=== PATIENT | female | born 2000 | race Two or more races ===

== ENCOUNTER 2018-03-29 23:30 | Outpatient (CLI) | payer OTHER ==
[2018-03-30 00:30] VITALS: BP 136/68; PULSE 96; RESP 18; TEMP 97.9
--- NOTE | 2018-04-13 08:37 | P.MSEPDOC ---
Presenting Problems - Arrival Data Date of Arrival on Unit: 03/29/18 Time of Arrival on Unit: 23:30 Mode of Transport: Wheelchair - Complaint OB-Reason for Admission/Chief Complaint: Pain Comment: cramping Medical History - Information : 1 Para: 0 Term: 0 : 0 Abortions: Spontaneous or Elective: 0 Number of Living Children: 0 - Gestational Age Gestational Age by JUAN ANTONIO (wks/days): 35 Weeks and 6 Days Review of Systems - Review of Systems Constitutional: No problems Breast: No problems ENT: No problems Cardiovascular: No problems Respiratory: No problems Gastrointestinal: No problems Genitourinary: No problems Musculoskeletal: No problems Neurological: No problems Skin: No problems Vital Signs - Temperature Temperature: 97.9 F Temperature Source: Oral - Pulse Right Brachial Pulse Rate: 96 Pulse Assessment Method: Automatic Cuff - Respirations Respiratory Rate: 18 Oxygen Delivery Method: Room Air O2 Sat by Pulse Oximetry: 100 - Blood Pressure Right Arm Blood Pressure: 136/68 Blood Pressure Mean: 90 Blood Pressure Source: Automatic Cuff Medical Screen Scoring (Pre) - Cervical Exam Dilation: 0 cm = 0 Membranes: Intact - Uterine Contractions Frequency: > 5 minutes apart = 1 Duration: N/A Intensity: N/A - Maternal Vital Signs Maternal Temperature: N/A Maternal Blood Pressure: N/A Signs of Preeclampsia: N/A - Pain Assessment Pain Location and Character: Back, Abdomen Pain Scale Used: Numeric (1 - 10) Pain Intensity: 9 Pain Description: *Acute Pain Frequency: Intermittent Pain Duration: 60 Pain Duration Units: Minutes Pain Behavior: Vocalization Pain Aggravating Factors: Activity - Maternal Trauma Maternal Trauma: N/A - Assessment Baseline FHR: 130 Heart Rate - NICHD Category: Category I (Normal) = 0 NST: Reactive Position: N/A Station: N/A - Total Score Total Score (Pre): 1 - Level of Risk Level of Risk: Low (0-5) Physician Notification (Pre) - Physician Notified Physician Notified Date: 03/30/18 Physician Notified Time: 00:02 Physician/Practitioner Notifed:: Dr. Alexander Spoke With: Dr. Alexander New Order Received: Yes - Notification Comment Comment: discharge pt home, she is to call the office in the morning to update on how she is doing Disposition - Disposition OB Disposition: Discharge to home, Written follow up instructions reviewed Discharge Date: 03/30/18 Discharge Time: 00:16 I agree with the RN Medical Screening Exam: Yes Risk & Benefit of care provided described in d/c instruction: Yes Diagnosis: 35 WEEKS GESTATION OF
== END 2018-03-30 00:16 | disposition home or self-care (01) ==
LOC: FBPOP 23:30
PROVIDERS: ATTEND Obstetrics & Gynecology
DX: O26.893 Other specified pregnancy related conditions, third trimester (principal); R10.9 Unspecified abdominal pain
CPT/HCPCS: 59025; 99213

== ENCOUNTER 2018-04-18 13:28 | Inpatient (IN) | payer BC ==
[2018-04-18] MEDS: LACTATED RINGERS 1,000 ML IV ONE (14:08)
--- NOTE | 2018-04-18 14:58 | US ---
EXAMINATION TYPE: US OB BPP wo non-stress DATE OF EXAM: 04/18/2018 COMPARISON: NONE CLINICAL HISTORY: decreased movement . Decreased movement EXAM PERFORMED: Transabdominal (TA) BPP PARAMETERS: PRESENTATION: Vertex LIE: Longitudinal?? HEART RATE: 137 bpm RHYTHM: Normal DEA: 12.0 DIAPHRAGM IMAGED: yes BPP SCORIN. Breathin (1 episode of breathing of 30 second duration in 30 minutes of scanning time) 2. Movement: 2 (at least 3 discrete body movements in 30 minutes) 3. Tone: 0 (1 episode of active flexion/extension of limb) 4. DEA: 2 (DEA index > 5cm) TOTAL SCORE: 4 / 8 Limited exam, biophysical profile performed.
[2018-04-18 15:25] VITALS: RESP 16
[2018-04-18 15:27] VITALS: BMI 30.5
[2018-04-18 15:34] LABS: Basophils % (A) 0 %; Eosinophils % (A) 0 %; HCT 37.5 % (34.0-46.0); HGB 12.9 gm/dL (11.4-16.0); Lymphocytes # (A) 1.8 k/uL (1.0-4.8); Lymphocytes % (A) 15 %; MCH 31.3 pg (25.0-35.0); MCHC 34.3 g/dL (31.0-37.0); MCV 91.4 fL (80.0-100.0); Mean Platelet Volume 8.1; Monocytes # (A) 0.5 k/uL (0-1.0); Monocytes % (A) 4 %; Neutrophils # (A) 9.6 k/uL (1.3-7.7); Neutrophils % (A) 79 %; Platelet Count 189 k/uL (150-450); RDW 14.4 % (11.5-15.5); WBC 12.1 k/uL (4.0-11.0)
[2018-04-19] MEDS: LACTATED RINGERS 1,000 ML IV ONE (02:03)
--- NOTE | 2018-04-19 08:18 | US ---
EXAMINATION TYPE: US OB BPP wo non-stress DATE OF EXAM: 04/19/2018 COMPARISON: 04/18/2018 CLINICAL HISTORY: repeat . EXAM PERFORMED: Transabdominal (TA) BPP PARAMETERS: PRESENTATION: Vertex LIE: Oblique?? HEART RATE: 131 bpm RHYTHM: Normal DEA: 11.5 DIAPHRAGM IMAGED: yes BPP SCORIN. Breathing: no breathing after 30 minutes (1 episode of breathing of 30 second duration in 30 minutes of scanning time) 2. Movement: 2 (at least 3 discrete body movements in 30 minutes) 3. Tone: 2 (1 episode of active flexion/extension of limb) 4. DEA: 2 (DEA index > 5cm) TOTAL SCORE: 6 / 8 IMPRESSION: Biophysical profile score of 6/8.
[2018-04-19] MEDS ORDERED: CARBOPROST TROMETHAMINE 250 MCG/ML 1 ML AMP IM PRN (08:40)
[2018-04-19] MEDS ORDERED: LIDOCAINE 1% (PF) 10 MG/ML (30 ML SDV) SQ PRN (08:40)
[2018-04-19] MEDS ORDERED: TERBUTALINE 1 MG/ML VIAL SQ PRN (08:40)
[2018-04-19] MEDS ORDERED: METHYLERGONOVINE 0.2 MG/ML 1 ML AMP IM PRN (08:40)
[2018-04-19] MEDS ORDERED: OXYTOCIN 10 UNIT/ML 1 ML VIAL IM PRN (08:40)
[2018-04-19] MEDS ORDERED: OXYTOCIN 20 UNITS/1000 ML NS 1,000 ML IV SCH ×2 (08:45→16:45)
--- NOTE | 2018-04-19 08:46 | P.HPOB ---
History of Present Illness H&P Date: 04/19/18 Chief Complaint: IUP at 38-0/7 weeks, decreased movement, labor This is a 17-year-old 2 para 0010 at 38-0/7 weeks with an estimated due date of . Patient presented yesterday afternoon with complaints of decreased movement initially heart tones were noted to be reactive biophysical profile was was completed and 4 out of 8, patient was admitted for overnight observation. Patient noted contractions overnight BPP was repeated this morning and found to be 6/8 with a reactive NST. Patient is noting movement this morning. On physical exam patient was 1 cm yesterday afternoon it is noted to be 3 cm this morning. Patient noted strong contractions last night. She denies vaginal bleeding loss of fluid, fever, chills, nausea, vomiting. She tolerated a regular diet last night without nausea or vomiting. On blood work showed a blood type of O+, rubella immune, hepatitis B surface antigen negative, RPR nonreactive, GBS negative. Review of Systems Constitutional: Denies chills, Denies fatigue, Denies fever Cardiovascular: Reports edema Respiratory: Denies dyspnea Gastrointestinal: Denies constipation, Denies diarrhea Genitourinary: Reports Past Medical History Past Medical History: Asthma Additional Past Medical History / Comment(s): IBS History of Any Multi-Drug Resistant Organisms: None Reported Past Surgical History: No Surgical Hx Reported Past Psychological History: Anxiety, Depression Smoking Status: Never smoker Past Alcohol Use History: None Reported Past Drug Use History: None Reported - Past Family History Father History Unknown: Yes Family Medical History: Diabetes Mellitus Medications and Allergies Home Medications Medication Instructions Recorded Confirmed Type Pnv No.95/Ferrous Fum/Folic AC 1 each PO DAILY 03/29/18 03/29/18 History [ Multivitamin Tablet] Allergies Allergy/AdvReac Type Severity Reaction Status Date / Time No Known Allergies Allergy Verified 03/29/18 23:44 Exam Osteopathic Statement: *. No significant issues noted on an osteopathic structural exam other than those noted in the History and Physical/Consult. Vital Signs Temp Pulse Resp BP 04/18/18 15:13 98.2 F 102 H 16 132/80 04/18/18 13:51 96.6 F L 134 H 16 119/71 Intake and Output 04/18/18 04/19/18 04/19/18 22:59 06:59 14:59 Other: # Voids 3 Weight 92.533 kg - OBG Physical Exam Abdomen: Gravid and appropriate for gestational age Cervix: 1cm--> 3cm this am Uterus: enlarged Results Result Diagrams: 04/18/18 15:06 Abnormal Lab Results - Last 24 Hours (Table) 04/18/18 Range/Units 15:06 WBC 12.1 H (4.0-11.0) k/uL Neutrophils # 9.6 H (1.3-7.7) k/uL Assessment and Plan (1) Term Current Visit: Yes Status: Acute Code(s): Z34.80 - ENCOUNTER FOR SUPRVSN OF NORMAL , UNSP TRIMESTER SNOMED Code(s): 60256898 (2) Decreased movement Current Visit: Yes Status: Acute Code(s): O36.8190 - DECREASED MOVEMENTS, UNSP TRIMESTER, UNSP SNOMED Code(s): 232135922 (3) Irregular contractions Current Visit: Yes Status: Acute Code(s): O62.2 - OTHER UTERINE INERTIA SNOMED Code(s): 05354896 Plan: We will admit to labor and delivery for labor given cervical change, given patient's heart tones overnight that were reassuring but a biophysical of 6/8 delivery is warranted. Amniotomy performed clear fluid was obtained we'll monitor closely and add Pitocin augmentation of necessary. Patient states understanding of the plan and all questions were answered. Anticipate spontaneous vaginal delivery later this afternoon.
[2018-04-19] MEDS: LACTATED RINGERS 1,000 ML IV SCH ×4 (10:04→21:09)
[2018-04-19] MEDS ORDERED: ROPIVACAINE 100 MG, fentaNYL (PF) 200 MCG in SODIUM CHLORIDE 0.9% 76 ML EPIDURAL ONE (12:34)
[2018-04-19] MEDS ORDERED: LANOLIN CREAM 5 GM TUBE TOPICAL PRN (16:39)
[2018-04-19] MEDS ORDERED: SIMETHICONE 80 MG CHEWABLE PO PRN (16:39)
[2018-04-19] MEDS ORDERED: WITCH HAZEL 1 EACH MED..PAD TOPICAL PRN (16:39)
[2018-04-19] MEDS ORDERED: diphenhydrAMINE 50 MG/ML 1 ML VIAL IVP PRN ×2 (16:39)
[2018-04-19] MEDS ORDERED: diphenhydrAMINE 50 MG CAP PO PRN (16:39)
[2018-04-19] MEDS ORDERED: IBUPROFEN 600 MG TAB PO PRN (16:39)
[2018-04-19] MEDS ORDERED: diphenhydrAMINE 25 MG CAP PO PRN (16:39)
[2018-04-19] MEDS ORDERED: BENZOCAINE/MENTHOL SPRAY 1 GM/SPRAY AEROSOL TOPICAL PRN (16:39)
[2018-04-19] MEDS ORDERED: ACETAMINOPHEN TAB 325 MG TAB PO PRN (16:39)
[2018-04-19] MEDS ORDERED: ZOLPIDEM 5 MG TAB PO PRN (16:39)
[2018-04-19] MEDS ORDERED: HYDROCORTISONE 2.5% RECTAL CREAM 30 GM TUBE RECTAL PRN (16:39)
--- NOTE | 2018-04-19 16:42 | P.PROBDLV ---
Vaginal Delivery Note - . Vaginal Delivery Note: This is a very pleasant 17-year-old 2 para 0010 at 38-0/7 weeks that presented to labor and delivery with decreased movement. Patient was admitted for induction of labor secondary to this and nonreassuring testing. Pitocin induction of labor was begun amniotomy was performed clear fluid was obtained. Patient progressed in labor eventually getting an epidural for analgesia. heart tones were reassuring throughout. Patient progressed to complete and had a normal spontaneous vaginal delivery of a viable female infant at 1626, weight of 6 lbs. 8 oz., Apgars of 9 and 9 at one and 5 minutes respectfully. Infant of note had a loose body cord that was delivered through. On inspection the patient's perineum after delivery no lacerations that required repair were noted. The placenta was delivered spontaneously intact with three-vessel cord, asked me blood loss for this delivery 200 mL. Afterwards the vaginal vault was inspected once again hemostasis was appreciated. Patient and infant tolerated delivery well and are resting comfortably.
[2018-04-19] MEDS: PRENATAL VIT-IRON-FOLIC ACID 1 EACH CAP PO SCH (21:07)
[2018-04-19] MEDS: SENNOSIDES-DOCUSATE SODIUM 1 EACH TAB PO SCH (21:48)
[2018-04-20] MEDS: LACTATED RINGERS 1,000 ML IV SCH ×2 (05:00→05:01)
[2018-04-20] MEDS: PRENATAL VIT-IRON-FOLIC ACID 1 EACH CAP PO SCH (07:43)
[2018-04-20] MEDS: SENNOSIDES-DOCUSATE SODIUM 1 EACH TAB PO SCH (07:43)
--- NOTE | 2018-04-20 08:07 | P.DS ---
Providers Date of admission: 04/19/18 08:40 Expected date of discharge: 04/20/18 Attending physician: Hiwot Chatterjee Primary care physician: Stated None - Discharge Diagnosis(es) (1) Term Current Visit: Yes Status: Acute (2) Decreased movement Current Visit: Yes Status: Acute (3) Irregular contractions Current Visit: Yes Status: Acute (4) Status post normal vaginal delivery Current Visit: Yes Status: Acute Hospital Course: This is a very pleasant 17-year-old 2 para 0010 at 38-0/7 weeks that presented to labor and delivery with complaints of decreased movement. Patient was monitored reassuring testing was noted but BPP was noted to be 4 and only improved to 6. Patient was counseled and desired induction of labor for decreased movement. Patient was started on Pitocin induction of labor amniotomy was performed clear fluid was obtained. Patient progressed through labor eventually getting an epidural, and becoming complete. Patient's red pushing and had a normal spontaneous vaginal delivery of a viable female at 1626, weight of 6 lbs. 8 oz., Apgars of 9 and 9 at one and 5 minutes respectively. Patient has done well . She is ambulating and voiding without difficulty. She is tolerating a regular diet without nausea or vomiting. She is bottle feeding. She denies any concerns this morning and wishes discharge home. Plan - Discharge Summary Discharge Rx Participant: No New Discharge Prescriptions: No Action Pnv No.95/Ferrous Fum/Folic AC [ Multivitamin Tablet] 1 each PO DAILY Discharge Medication List Pnv No.95/Ferrous Fum/Folic AC [ Multivitamin Tablet] 1 each PO DAILY [History] Follow up Appointment(s)/Referral(s): Hiwot Chatterjee DO [Doctor of Osteopathic Medicine] - 1 Week Activity/Diet/Wound Care/Special Instructions: No tub baths or intercourse until 6 weeks Discharge Disposition: HOME SELF-CARE
[2018-04-20 17:33] VITALS: BP 119/84; PULSE 85; TEMP 98.4
== END 2018-04-20 17:17 | disposition home or self-care (01) | DRG 775 ==
LOC: FBPOP 13:28 → 4FBP 14:55 → OBSVTOIN 04-19 08:40
PROVIDERS: ADMIT Obstetrics & Gynecology Obstetrics; ATTEND Obstetrics & Gynecology Obstetrics
PROC: 10907ZC Drainage of Amniotic Fluid, Therapeutic from Products of Conception, Via Natural or Artificial Opening (ICD-10-PCS; principal; 2018-04-19)
PROC: 3E033VJ Introduction of Other Hormone into Peripheral Vein, Percutaneous Approach (ICD-10-PCS; principal; 2018-04-19)
PROC: 00HU33Z Insertion of Infusion Device into Spinal Canal, Percutaneous Approach (ICD-10-PCS; principal; 2018-04-19)
PROC: 10E0XZZ Delivery of Products of Conception, External Approach (ICD-10-PCS; principal; 2018-04-19)
PROC: 3E0R3NZ Introduction of Analgesics, Hypnotics, Sedatives into Spinal Canal, Percutaneous Approach (ICD-10-PCS; principal; 2018-04-19)
DX: O36.8130 Decreased fetal movements, third trimester, not applicable or unspecified (principal); Z37.0 Single live birth; Z3A.38 38 weeks gestation of pregnancy; Z83.3 Family history of diabetes mellitus; O69.89X0 Labor and delivery complicated by other cord complications, not applicable or unspecified
CPT/HCPCS: 59025; 76819; 85025; 88307; 96360; 96367; 99214

== ENCOUNTER 2019-01-26 18:44 | Emergency (ER) | payer BC, OTHER ==
[2019-01-26 19:02] VITALS: TEMP 98.2
[2019-01-26] MEDS ORDERED: MORPHINE SULFATE 4 MG/ML SYRINGE IM STA (19:19)
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
--- NOTE | 2019-01-26 20:00 | XR ---
EXAMINATION TYPE: XR chest 2V DATE OF EXAM: 01/26/2019 COMPARISON: NONE HISTORY: Pain TECHNIQUE: Frontal and lateral views of the chest are obtained. FINDINGS: Heart and mediastinum are normal. Lungs are clear. Diaphragm is normal. Bony thorax appear s normal. IMPRESSION: Normal chest.
--- NOTE | 2019-01-26 20:01 | XR ---
EXAMINATION TYPE: XR elbow complete RT DATE OF EXAM: 01/26/2019 COMPARISON: NONE HISTORY: Pain TECHNIQUE: 3 views FINDINGS: Elbow joint spaces are normal. I see no fracture nor dislocation. There is no sign of elbow joint effusion. IMPRESSION: Negative right elbow exam.
--- NOTE | 2019-01-26 20:01 | XR ---
EXAMINATION TYPE: XR wrist complete RT DATE OF EXAM: 01/26/2019 COMPARISON: NONE HISTORY: Pain TECHNIQUE: 3 views FINDINGS: There is impacted comminuted transverse fracture distal radial metaphysis. There is no disl ocation. There is nondisplaced ulnar styloid process tip fracture. There is no dislocation. IMPRESSION: Fractures of distal radius and ulna. No carpal bone fracture seen.
--- NOTE | 2019-01-26 20:02 | XR ---
EXAMINATION TYPE: XR forearm RT DATE OF EXAM: 01/26/2019 COMPARISON: NONE HISTORY: Pain TECHNIQUE: 2 views FINDINGS: There are fractures of distal radius and ulna described in the wrist x-ray report. Elbow osvaldo int is intact. There is soft tissue swelling around the wrist joint. IMPRESSION: Fractures of distal radius and ulna as above with radius impacted comminuted fracture and nondisplaced ulnar styloid process fracture.
--- NOTE | 2019-01-26 20:03 | XR ---
EXAMINATION TYPE: XR knee complete RT DATE OF EXAM: 01/26/2019 COMPARISON: NONE HISTORY: Pain TECHNIQUE: 3 views FINDINGS: I see no fracture nor dislocation. Joint spaces are normal. There is no sign of knee joint effusion. IMPRESSION: Negative right knee exam.
[2019-01-26] MEDS ORDERED: MORPHINE SULFATE 2 MG/ML SYRINGE IM STA (20:10)
[2019-01-26] MEDS ORDERED: LIDOCAINE 1% INJ 10MG/ML (20 ML MDV) SQ ONE (20:42)
--- NOTE | 2019-01-26 22:23 | XR ---
EXAM: XR Right Forearm, 2 Views CLINICAL HISTORY: ITS.REASON XR Reason: post reduction TECHNIQUE: Frontal and lateral views of the right forearm. COMPARISON: X-ray 01/26/19 IMPRESSION: Improved anatomic alignment. Redemonstration of fractures.
[2019-01-26] MEDS ORDERED: ACET/COD 300 MG/30 MG STARTER PACK 6 TAB BTL PO STA (22:37)
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
[2019-01-26 22:48] VITALS: BP 140/66; PULSE 94; RESP 18
== END 2019-01-26 22:59 | disposition home or self-care (01) ==
LOC: EC 18:44
DX: S52.531A Colles' fracture of right radius, initial encounter for closed fracture (principal); S52.601A Unspecified fracture of lower end of right ulna, initial encounter for closed fracture; S80.211A Abrasion, right knee, initial encounter; V86.56XA Driver of dirt bike or motor/cross bike injured in nontraffic accident, initial encounter; Y93.55 Activity, bike riding; Y92.828 Other wilderness area as the place of occurrence of the external cause
CPT/HCPCS: 73080; 73090; 73110; 73562; 71046; 72125; 70450; 99284; 25605; 96372 ×2; L4350; J2270 ×2

== ENCOUNTER 2019-02-04 13:20 | Day surgery (SDC) | payer BC, OTHER ==
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
[~2019-02-04 13:20] MED LIST: DEXAMETHASONE SOD PHOSPHATE 10 MG/ML 1 ML VIAL IV ONE; HYDROmorphone 0.5 MG/0.5 ML SYRINGE IVP PRN; LIDOCAINE 1% 20 ML VIAL (10MG/ML) FOR IV START INTRADERMA PRN; MIDAZOLAM (PF) 2 MG/2 ML VIAL IV PRN; ONDANSETRON 4 MG/2 ML VIAL IVP ONE; ceFAZolin IN SWFI 2 GM/20 ML SYRINGE IVP ONE; fentaNYL (PF) 50 MCG/ML 2 ML AMP IV PRN
[2019-02-04] MEDS: LACTATED RINGERS 1,000 ML IV SCH ×2 (14:00→18:41)
--- NOTE | 2019-02-04 14:34 | P.ONQ ---
Anesthesiology Proc Note - PNB - Peripheral Nerve Block Performed Right Supraclavicular Procedure Start Time: 14:20 Procedure Stop Time: 14:33 Indication: Acute Post-Operative Pain, Analgesia, Requested by physician Sedation Type: Sedate with meaningful contact maintained Preparation: Sterile Dressing Position: Supine Catheter: None Needle Types: Facet Needle Size: 50mm (2") Needle Gauge: 21 Technique: Ultrasound Injectate: 0.5% Ropivacaine (see comment for volume) (30 ml)
[2019-02-04] MEDS ORDERED: MIDAZOLAM 2 MG/2 ML VIAL ONE (15:54)
[2019-02-04] MEDS ORDERED: SUCCINYLCHOLINE CHLORIDE 100 MG/5 ML SYR IV ONE (15:54)
[2019-02-04] MEDS ORDERED: fentaNYL (PF) 50 MCG/ML 2 ML AMP ONE (15:54)
[2019-02-04] MEDS ORDERED: PROPOFOL 10 MG/ML 20 ML VIAL IV ONE (15:54)
[2019-02-04] MEDS ORDERED: LIDOCAINE 1% INJ 10MG/ML (20 ML MDV) ONE (15:54)
[2019-02-04] MEDS ORDERED: ceFAZolin 1,000 MG in SODIUM CHLORIDE 0.9% 1,000 ML IRRIGATION ONE (16:35)
[2019-02-04] MEDS ORDERED: LACTATED RINGERS 1,000 ML IV ONE (17:05)
[2019-02-04] MEDS ORDERED: HYDROmorphone 0.5 MG/0.5 ML SYRINGE IVP PRN (17:16)
[2019-02-04] MEDS ORDERED: HYDROcodone/APAP 5-325MG 1 EACH TAB PO PRN ×2 (17:16)
[2019-02-04] MEDS ORDERED: ONDANSETRON 4 MG/2 ML VIAL IVP PRN (17:16)
[2019-02-04] MEDS ORDERED: HYDROmorphone 1 MG/ML 1 ML SYRINGE IVP PRN (17:16)
[2019-02-04] MEDS ORDERED: ACETAMINOPHEN TAB 325 MG TAB PO PRN (17:18)
--- NOTE | 2019-02-04 17:20 | P.OP ---
Date of Procedure: 02/04/19 Preoperative Diagnosis: Comminuted displaced intra-articular right distal radius fracture Postoperative Diagnosis: Same Procedure(s) Performed: Open reduction and internal fixation right distal radius fracture Implants: Synthes distal volar wrist plate with appropriate length 2.4 mm and 1.8 mm screws Anesthesia: GETA, regional (Supraclavicular block) Surgeon: Kameron Gardner Maintenance Data Analyst #1: Ambrosio Maher Estimated Blood Loss (ml): 15 Pathology: none sent Condition: stable Disposition: PACU Indications for Procedure: 18-year-old patient seen with a displaced comminuted intra-articular right distal radius fracture. I recommended open reduction internal fixation. Patient was agreeable and consent was obtained. Operative Findings: see description of procedure Description of Procedure: The patient was taken to the operative suite. The patient had undergone a supraclavicular block by the department of anesthesia for postoperative pain management. The patient underwent a general anesthetic by the department of anesthesia. The patient received preoperative IV antibiotics. A tourniquet was placed on the proximal right upper extremity. The right upper extremity was prepped and draped in the normal sterile orthopedic fashion. The extremity was elevated to 300. A standard volar incision was made sharply through the skin along the distal radius. Careful dissection was taken down all the way bluntly to the distal radius. There was a comminuted fracture with obvious intra- articular extension. With the assistance of Awais TURNER the fracture was reduced and an appropriate Synthes distal volar wrist plate was placed in position. Preliminary fixation was achieved in the proximal part of the plate with one 2.4 mm screw. We noted reasonable position of the plate. The fracture was held in a reduced position with the assistance the Awais TURNER while I drilled the distal holes and inserted appropriate length smooth locking pegs. I reviewed the construct under AP and lateral intraoperative imaging. There was reasonable alignment of this comminuted fracture and reasonable placement of the hardware. I placed 1 more locking screw in the proximal plate and again checked the entire construct and again noted adequate alignment. Intraoperative spot films were obtained to document this. Wound was irrigated. The subcu soft tissues were repaired with 2-0 Vicryl. The skin was repaired with 4-0 nylon interrupted sutures. Sterile dressings were applied. The tourniquet was rolled was released with immediate capillary refill noted. The patient was placed into a volar splint. The patient was awakened having entire procedure well. Awais TURNER assisted procedure..
[2019-02-04 18:39] VITALS: BMI 31.9
[2019-02-04 21:31] LABS: Glucose,Whole Blood 184 mg/dL (75-99)
[2019-02-05] MEDS: ceFAZolin IN SWFI 2 GM/20 ML SYRINGE IVP SCH ×2 (00:51→07:47)
[2019-02-05 05:04] VITALS: TEMP 98.2
[2019-02-05] MEDS: LACTATED RINGERS 1,000 ML IV SCH (05:51)
--- NOTE | 2019-02-05 08:41 | FL ---
EXAMINATION TYPE: FL guidance operating room DATE OF EXAM: 02/04/2019 HISTORY: Flouroscopy time 8 seconds of fluoroscopy provided. IMPRESSION: 1. Fluoroscopy time.
[2019-02-05 08:56] VITALS: BP 115/74; PULSE 87; RESP 16
--- NOTE | 2019-02-05 09:20 | XR ---
EXAMINATION TYPE: XR wrist limited RT DATE OF EXAM: 02/04/2019 COMPARISON: 01/26/2019 HISTORY: ORIF TECHNIQUE: 2 intraoperative views are submitted FINDINGS: Postsurgical change appears in near-anatomic alignment. Displaced ulnar styloid fracture no bar and is similar to the prior exam. IMPRESSION: Postsurgical changes.
--- NOTE | 2019-02-05 10:09 | P.PN ---
Subjective Progress Note Date: 02/05/19 Principal diagnosis: Status post ORIF right distal radius fracture Patient evaluated at bedside today, she is resting comfortably. She notes most the sensation is returning to the arm, she still has some tingling in the fingers. She is able to wiggle the fingers. She denies any chest pain or shortness of breath. Objective - Vital Signs Vital signs: Vital Signs Temp 98.2 F 02/05/19 07:52 Pulse 87 02/05/19 07:52 Resp 16 02/05/19 07:52 BP 115/74 02/05/19 07:52 Pulse Ox 95 02/05/19 07:52 Intake & Output 02/04/19 02/05/19 02/05/19 18:59 06:59 18:59 Intake Total 1251 Output Total 15 Balance 1236 Intake: IV 1251 Output: Estimated Blood Loss 15 Other: Voiding Method Toilet # Voids 1 - Exam Right upper extremity: Postop splint is in good position and condition. Skin is warm to touch. Sensation to light touch proximal distal to the cement are intact. Cap refill is less than 2 seconds. - Labs Labs: Abnormal Lab Results - Last 24 Hours (Table) 02/04/19 Range/Units 21:20 POC Glucose (mg/dL) 184 H (75-99) mg/dL Assessment and Plan Plan: Assessment: Postoperative day #1 status post ORIF right distal radius fracture Plan: Pain control, patient stated she did have some nausea from the [place] is prescribed at home. We'll prescribe tramadol and Motrin at discharge Cast instructions were discussed with the patient Activity restrictions discussed [facility]up [facility] 2 weeks Time with Patient: Less than 30
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
== END 2019-02-05 11:33 | disposition home or self-care (01) ==
LOC: OR 13:20 → 4SSUR 17:21 → OR 02-05 11:33
PROVIDERS: ATTEND Orthopaedic Surgery
DX: S52.571A Other intraarticular fracture of lower end of right radius, initial encounter for closed fracture (principal); X58.XXXA Exposure to other specified factors, initial encounter; J45.909 Unspecified asthma, uncomplicated; Z79.3 Long term (current) use of hormonal contraceptives; Z79.891 Long term (current) use of opiate analgesic
CPT/HCPCS: 73100; 25608; J1100; J2405; J0690 ×3; J2250; 64413; 81025

== ENCOUNTER → 2019-02-04 | Outpatient (CLI) | payer BC, OTHER ==
[2019-02-04 14:06] LABS: Basophils % (A) 0 %; Eosinophils # (A) 0.1 k/uL (0-0.7); Eosinophils % (A) 1 %; HCT 38.2 % (34.0-46.0); HGB 12.8 gm/dL (11.4-16.0); Lymphocytes # (A) 1.4 k/uL (1.0-4.8); Lymphocytes % (A) 21 %; MCH 28.9 pg (25.0-35.0); MCHC 33.6 g/dL (31.0-37.0); MCV 86.1 fL (80.0-100.0); Mean Platelet Volume 7.6; Monocytes # (A) 0.2 k/uL (0-1.0); Monocytes % (A) 3 %; Neutrophils # (A) 4.7 k/uL (1.3-7.7); Neutrophils % (A) 73 %; Platelet Count 210 k/uL (150-450); RBC 4.44 m/uL (3.80-5.40); RDW 13.4 % (11.5-15.5); WBC 6.5 k/uL (4.0-11.0)
== END | disposition home or self-care (01) ==
LOC: LABPAT 13:10
PROVIDERS: ATTEND Orthopaedic Surgery
DX: Z01.812 Encounter for preprocedural laboratory examination (principal); S52.501D Unspecified fracture of the lower end of right radius, subsequent encounter for closed fracture with routine healing
CPT/HCPCS: 85025

== ENCOUNTER 2019-08-12 09:33 | Emergency (ER) | payer BC, OTHER ==
[2019-08-12 09:37] VITALS: BP 122/57; PULSE 104; RESP 18; TEMP 98.1
[2019-08-12 10:12] LABS: Appearance,Urine Clear (Clear); Bilirubin,Urine Negative (Negative); Blood,Urine Negative (Negative); Color,Urine Yellow; Glucose,Urine (UA) Negative (Negative); Ketones,Urine Negative (Negative); Leukocyte Esterase,Urine Negative (Negative); Nitrite,Urine Negative (Negative); PH, Urine 7.5 (5.0-8.0); Protein,Urine Negative (Negative); Specific Gravity,Urine 1.022 (1.001-1.035); Urobilinogen,Urine <2.0 mg/dL (<2.0)
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
== END 2019-08-12 10:28 | disposition home or self-care (01) ==
LOC: EC 09:33
DX: O99.89 Other specified diseases and conditions complicating pregnancy, childbirth and the puerperium (principal); M54.5 Low back pain; M79.604 Pain in right leg; R20.0 Anesthesia of skin; Z79.3 Long term (current) use of hormonal contraceptives; Z3A.00 Weeks of gestation of pregnancy not specified
CPT/HCPCS: 81003; 81025; 99283

== ENCOUNTER → 2020-05-07 | Outpatient (CLI) | payer OTHER ==
--- NOTE | 2020-05-07 15:52 | XR ---
EXAM TYPE: LUMBAR SPINE X RAY SERIES COMPARISON: NONE HISTORY: Low back pain TECHNIQUE: 4 views are submitted. FINDINGS: Alignment is anatomic. The pedicles are intact. The transverse processes are intact. There is no s pondylolysis or spondylolisthesis. IMPRESSION: 1. No acute process. If there is concern for disc herniation correlate with MRI.
== END | disposition home or self-care (01) ==
LOC: RADXRMAIN 15:00
PROVIDERS: ATTEND Family Medicine
DX: M54.5 Low back pain (principal)
CPT/HCPCS: 72110

== ENCOUNTER → 2020-06-11 | Outpatient (CLI) | payer OTHER ==
--- NOTE | 2020-06-11 15:30 | MR ---
EXAMINATION TYPE: MR lumbar spine wo con DATE OF EXAM: 06/11/2020 COMPARISON: Lumbar spine x-ray May 07, 2020 HISTORY: Radiculopathy, low back pain and low back pain per order. Pressure and pain low back causing numbness into both legs for 2 years per patient. TECHNIQUE: Multiplanar, multisequence imaging of the lumbar spine is performed without IV contrast. FINDINGS: Sagittal images of the lumbar spine show vertebral body heights and alignment to appear sat isfactory. Disc desiccation L5-S1 level. Disc space heights are maintained. The conus medullaris is s omewhat low in position extending mid L2 level without suspicious signal or cortical thinning of lumb osacral nerve roots. The bone marrow signal intensity is within normal limits. Axial images show the T12-L1, L1-L2, L2-L3, and L3-L4 levels all to appear within normal limits. Axial images at the L4-L5 level show focal central disc protrusion minimally effacing the anterior th ecal sac, bilateral neural foramina are patent. Axial images at the L5-S1 level show focal central disc protrusion with spinal canal is preserved as is increased epidural fat at this level. Bilateral neural foramina remain patent. Paraspinal muscle bulk is maintained. IMPRESSION: Mild degenerative changes in the lower lumbar spine as detailed above. Large herniation t o account for patient's radiculopathy type symptoms is not identified.
== END | disposition home or self-care (01) ==
LOC: RADMRIMAIN 14:08
PROVIDERS: ATTEND Family Medicine
DX: M51.26 Other intervertebral disc displacement, lumbar region (principal); M47.26 Other spondylosis with radiculopathy, lumbar region
CPT/HCPCS: 72148

== ENCOUNTER → 2021-03-15 | Outpatient (CLI) | payer OTHER ==
--- NOTE | 2021-03-15 21:31 | MR ---
EXAMINATION TYPE: MR lumbar spine wo con DATE OF EXAM: 03/15/2021 COMPARISON: 06/11/2020 HISTORY: Low back pain that goes down right leg and causes numbness, 3 years. CONTRAST: 0 mL intravenous Gadavist. TECHNIQUE: Multiplanar, multisequence images of the lumbar spine were acquired. FINDINGS: L5-S1: Disc desiccation is present broad-based disc bulge is present. Some increased signal is presen t posteriorly compatible with an annular tear. No significant thecal sac or epidural space impingemen t is evident. Neural foramen are patent. Disc bulge is diminished over the interval. L4-L5: Disc desiccation is present. A right paracentral large disc herniation is present. This appear s to have impingement of the exiting nerve root. Correlate with the radicular symptoms. This is a new finding from comparison. L3-L4: No significant disc bulge or disc herniation. No spinal canal stenosis. No foraminal stenosi s. L2-L3: No significant disc bulge or disc herniation. No spinal canal stenosis. No foraminal stenosi s. L1-L2: No significant disc bulge or disc herniation. No spinal canal stenosis. No foraminal stenosi s. T12-L1: No significant disc bulge or disc herniation. No spinal canal stenosis. No foraminal stenos is. Cord terminates at the L1-2 level IMPRESSION: 1. New large right paracentral disc herniation impinging the exiting right L5 nerve root. Correlate w ith radicular symptoms. 2. Diminished disc bulging L5-S1. Annular tear remains present.
== END | disposition home or self-care (01) ==
LOC: RADMRIMAIN 20:04
PROVIDERS: ATTEND Orthopaedic Surgery
DX: M51.27 Other intervertebral disc displacement, lumbosacral region (principal)
CPT/HCPCS: 72148

== ENCOUNTER 2021-04-27 06:24 | Day surgery (SDC) | payer OTHER ==
[2021-04-23 14:26] VITALS: BMI 32.5
[~2021-04-27 06:24] MED LIST changes: -DEXAMETHASONE SOD PHOSPHATE 10 MG/ML 1 ML VIAL IV ONE; -HYDROmorphone 0.5 MG/0.5 ML SYRINGE IVP PRN; +LACTATED RINGERS 1,000 ML IV SCH; -LIDOCAINE 1% 20 ML VIAL (10MG/ML) FOR IV START INTRADERMA PRN; -MIDAZOLAM (PF) 2 MG/2 ML VIAL IV PRN; -ONDANSETRON 4 MG/2 ML VIAL IVP ONE; -ceFAZolin IN SWFI 2 GM/20 ML SYRINGE IVP ONE; -fentaNYL (PF) 50 MCG/ML 2 ML AMP IV PRN
[2021-04-27 06:48] VITALS: TEMP 97.3
[2021-04-27] MEDS ORDERED: MIDAZOLAM 2 MG/2 ML VIAL ONE (07:24)
[2021-04-27] MEDS ORDERED: TRIAMCINOLONE ACETONIDE 40 MG/ML 1 ML VIAL ONE (07:24)
[2021-04-27] MEDS ORDERED: ROPIVACAINE 5MG/ML 20ML VIAL ONE (07:24)
[2021-04-27] MEDS ORDERED: IOPAMIDOL M200 10 ML VIAL ONE (07:24)
[2021-04-27] MEDS ORDERED: fentaNYL (PF) 50 MCG/ML 2 ML AMP ONE (07:24)
--- NOTE | 2021-04-27 07:39 | P.PCN ---
Date of Procedure: 04/27/21 Surgeon: David Aguilar Pathology: none sent Condition: stable Disposition: PACU Description of Procedure: PREOPERATIVE DIAGNOSIS: 1-Lumbar radiculopathy 2- Lumber Degenerative Disc Diseases. POSTOPERATIVE DIAGNOSIS: 1-Lumbar radiculopathy. 2-Lumbar Degenerative Disc Diseases PROCEDURE 1. Lumbar epidural steroid injection under fluoroscopic guidance at the L4-5 level in the right paramedian approach. 2. Lumbar epidurogram. ANESTHESIA: Local with 1% lidocaine; and IV moderate conscious sedation with Versed and fentanyl EBL: Minimal PROCEDURE INDICATION: The patient with low back pain and radiculitis symptoms unresponsive to conservative treatment. Fluoroscopy was used to optimize visualization of the needle placement and to maximize safety. PROCEDURE DESCRIPTION / TECHNIQUE: The patient was seen and identified in the preoperative area. Risks, benefits, complications including but not limited to infections ,bleeding ,allergic reaction to the medications ,nerve damage and not complete pain relief , and alternatives were discussed with the patient. The patient agreed to proceed with the procedure and signed the consent. IV was started, and vital signs were stable. Patient was taken to the OR and time out was completed. The patient was placed in the prone position on procedure table and a pillow was placed under the abdomen to reduce lumbar lordosis. The lumbosacral area was prepped and draped in the usual sterile fashion with ChloraPrep.Patient was closely monitored during the procedure. Conscious sedation was used during the procedure to decrease patients anxiety. Vital signs were monitered during the entire procedure. Using anterior-posterior fluoroscopy, the L4-5 interlaminar space was identified and the skin over this site was marked and then infiltrated with 1% lidocaine subcutaneously. Subsequently, a 20-gauge Tuohy epidural needle was inserted and advanced toward the epidural space using the Loss of resistance to air technique and guided by AP and lateral fluoroscopy. The epidural space was found at about 9 cm from skin. The correct needle position in the epidural space was verified with the injection of 1 mL of the water soluble contrast dye Omnipaque 180 contrast and observing an excellent epidurogram with the epidural spread of the dye, after negative aspiration for blood and CSF and in the absence of paresthesias. Again after negative aspiration, a 8 ml mixture containing 80 mg of Kenalog and 5 ml of preservative free Normal Saline, and 2 ml of preservative free ropivacaine 0.5% solution was injected and a washout of epidurogram was seen. Needle was withdrawn intact, skin was cleansed, and bandages were applied. patient tolerated procedure well and was transferred to PACU in stable condition.A copy of the needle placement picture was saved to the fluoroscopy machine. COMPLICATIONS: None DISPOSITION / PLANS: The patient was placed in a supine position and transferred to the recovery area in a stable condition for observation. There was no evidence of lower extremity motor or sensory deficit after the procedure. Patient was discharged from the recovery room after meeting discharge criteria. Home discharge instructions were given to the patient by the staff. The patient was reexamined prior to discharge. The patient will schedule a follow up in the clinic in 2-4 weeks.
[2021-04-27] MEDS ORDERED: IV FLUID CONTINUATION 1,000 ML IV ONE (07:41)
[2021-04-27 07:44] VITALS: PULSE 91; RESP 16
[2021-04-27 07:57] VITALS: BP 101/77
--- NOTE | 2021-04-27 09:45 | FL ---
EXAMINATION TYPE: FL guided pain mgmt statistic DATE OF EXAM: 04/27/2021 HISTORY: Fluoroscopy time 7 seconds of fluoroscopy provided. IMPRESSION: 1. Fluoroscopy time.
== END 2021-04-27 08:11 | disposition home or self-care (01) ==
LOC: ORPAIN 06:24
PROVIDERS: ATTEND Anesthesiology
DX: M51.16 Intervertebral disc disorders with radiculopathy, lumbar region (principal); E66.9 Obesity, unspecified; Z68.34 Body mass index [BMI] 34.0-34.9, adult
CPT/HCPCS: 81025; 62323; J2250; J3301; J3010; Q9966; J2795

== ENCOUNTER 2021-05-25 13:20 | Day surgery (SDC) | payer OTHER ==
[2021-05-24 09:02] VITALS: BMI 33.2
[2021-05-25 13:29] VITALS: TEMP 97.8
[2021-05-25] MEDS ORDERED: LACTATED RINGERS 1,000 ML IV ONE (13:32)
[2021-05-25] MEDS ORDERED: IOPAMIDOL M200 10 ML VIAL ONE (13:41)
[2021-05-25] MEDS ORDERED: ROPIVACAINE 5MG/ML 20ML VIAL ONE (13:41)
[2021-05-25] MEDS ORDERED: MIDAZOLAM 2 MG/2 ML VIAL ONE (13:41)
[2021-05-25] MEDS ORDERED: fentaNYL (PF) 50 MCG/ML 2 ML AMP ONE (13:41)
[2021-05-25] MEDS ORDERED: TRIAMCINOLONE ACETONIDE 40 MG/ML 1 ML VIAL ONE (13:41)
--- NOTE | 2021-05-25 13:56 | P.PCN ---
Date of Procedure: 05/25/21 Surgeon: David Aguilar Pathology: none sent Condition: stable Disposition: PACU Description of Procedure: PREOPERATIVE DIAGNOSIS: 1-Lumbar radiculopathy 2- Lumber Degenerative Disc Diseases. POSTOPERATIVE DIAGNOSIS: 1-Lumbar radiculopathy. 2-Lumbar Degenerative Disc Diseases PROCEDURE 1. Lumbar epidural steroid injection under fluoroscopic guidance at the L4-5 level in the right paramedian approach. 2. Lumbar epidurogram. ANESTHESIA: Local with 1% lidocaine; and IV moderate conscious sedation with Versed and fentanyl EBL: Minimal PROCEDURE INDICATION: The patient with low back pain and radiculitis symptoms unresponsive to conservative treatment. Fluoroscopy was used to optimize visualization of the needle placement and to maximize safety. PROCEDURE DESCRIPTION / TECHNIQUE: The patient was seen and identified in the preoperative area. Risks, benefits, complications including but not limited to infections ,bleeding ,allergic reaction to the medications ,nerve damage and not complete pain relief , and alternatives were discussed with the patient. The patient agreed to proceed with the procedure and signed the consent. IV was started, and vital signs were stable. Patient was taken to the OR and time out was completed. The patient was placed in the prone position on procedure table and a pillow was placed under the abdomen to reduce lumbar lordosis. The lumbosacral area was prepped and draped in the usual sterile fashion with ChloraPrep.Patient was closely monitored during the procedure. Conscious sedation was used during the procedure to decrease patients anxiety. Vital signs were monitered during the entire procedure. Using anterior-posterior fluoroscopy, the L4-5 interlaminar space was identified and the skin over this site was marked and then infiltrated with 1% lidocaine subcutaneously. Subsequently, a 20-gauge Tuohy epidural needle was inserted and advanced toward the epidural space using the Loss of resistance to air technique and guided by AP and lateral fluoroscopy. The correct needle position in the epidural space was verified with the injection of 1 mL of the water soluble contrast dye Omnipaque 180 contrast and observing an excellent epidurogram with the epidural spread of the dye, after negative aspiration for blood and CSF and in the absence of paresthesias. Again after negative aspiration, a 8 ml mixture containing 40 mg of Kenalog and 5 ml of preservative free Normal Saline, and 2 ml of preservative free ropivacaine 0.5% solution was injected and a washout of epidurogram was seen. Needle was withdrawn intact, skin was cleansed, and bandages were applied. patient tolerated procedure well and was transferred to PACU in stable condition.A copy of the needle placement picture was saved to the fluoroscopy machine. COMPLICATIONS: None DISPOSITION / PLANS: The patient was placed in a supine position and transferred to the recovery area in a stable condition for observation. There was no evidence of lower extremity motor or sensory deficit after the procedure. Patient was discharged from the recovery room after meeting discharge criteria. Home discharge instructions were given to the patient by the staff. The patient was reexamined prior to discharge. The patient will schedule a follow up in the clinic in 2-4 weeks.
[2021-05-25] MEDS ORDERED: IV FLUID CONTINUATION 1,000 ML IV ONE ×2 (13:59)
[2021-05-25 14:05] VITALS: RESP 16
[2021-05-25 14:18] VITALS: BP 109/70; PULSE 83
--- NOTE | 2021-05-25 14:20 | FL ---
Fluoroscopy HISTORY: Pain 8 seconds fluoroscopy time supplied to the referring clinician. 2 intraoperative C-arm images docume nt the procedure. See dictated report from anesthesia.
== END 2021-05-25 14:30 | disposition home or self-care (01) ==
LOC: ORPAIN 13:20
PROVIDERS: ATTEND Anesthesiology
DX: M51.16 Intervertebral disc disorders with radiculopathy, lumbar region (principal); M51.36 Other intervertebral disc degeneration, lumbar region
CPT/HCPCS: 81025; 62323; J2250; J3301; J3010; Q9966; J2795; 99152

== ENCOUNTER → 2021-07-02 | Outpatient (CLI) | payer OTHER ==
--- NOTE | 2021-07-02 16:48 | ECHOF ---
Referral Reason:R01.1 murmur MEASUREMENTS -------- HEIGHT: 175.3 cm WEIGHT: 104.3 kg BP: RVIDd: 3.3 cm (< 3.3) IVSd: 1.2 cm (0.6 - 1.1) LVIDd: 4.3 cm (3.9 - 5.3) LVPWd: 1.0 cm (0.6 - 1.1) IVSs: 1.4 cm LVIDs: 2.6 cm LVPWs: 1.7 cm LAESV Index (A-L): 20.18 ml/m Ao Diam: 2.4 cm (2.0 - 3.7) AV Cusp: 1.9 cm (1.5 - 2.6) LA Diam: 2.9 cm (2.7 - 3.8) MV EXCURSION: 19.189 mm (> 18.000) MV EF SLOPE: 94 mm/s (70 - 150) EPSS: 0.5 cm MV E Collin: 1.03 m/s MV DecT: 195 ms MV A Collin: 0.63 m/s MV E/A Ratio: 1.63 RAP: 3.00 mmHg RVSP: 22.42 mmHg FINDINGS -------- Sinus rhythm. This was a technically adequate study. The left ventricular size is normal. There is borderline concentric left ventricular hypertrophy. Overall left ventricular systolic function is normal with, an EF between 55 - 60 %. The diastolic filling pattern is normal for the age of the patient 7.17. The right ventricle is mildly enlarged. Normal LA size by volume 22+/-6 ml/m2. The right atrial size is normal. Interatrial and interventricular septum intact. The aortic valve is trileaflet and appears structurally normal. There is no evidence of aortic regu rgitation. There is no evidence of aortic stenosis. There is trace mitral regurgitation. Mild tricuspid regurgitation present. There is no evidence of pulmonary hypertension. The right v entricular systolic pressure, as measured by Doppler, is 22.42mmHg. There is no pulmonic regurgitation present. The aortic root size is normal. IVC Not well visulized. There is no pericardial effusion. CONCLUSIONS -------- 1. The left ventricular size is normal. 2. There is borderline concentric left ventricular hypertrophy. 3. Overall left ventricular systolic function is normal with, an EF between 55 - 60 %. 4. The diastolic filling pattern is normal for the age of the patient 7.17 5. The right ventricle is mildly enlarged. 6. There is trace mitral regurgitation. 7. Mild tricuspid regurgitation present. FITNESS WORKER: Kacy Robles RDCS
== END | disposition home or self-care (01) ==
LOC: RADECHMAIN 11:32
PROVIDERS: ATTEND Family Medicine
DX: I08.1 Rheumatic disorders of both mitral and tricuspid valves (principal)
CPT/HCPCS: 93306

== ENCOUNTER 2021-08-19 06:18 | Day surgery (SDC) | payer OTHER ==
[2021-08-19] MEDS ORDERED: LACTATED RINGERS 1,000 ML IV SCH (06:32)
[2021-08-19 06:39] VITALS: TEMP 97.9
[2021-08-19] MEDS ORDERED: LIDOCAINE 1% (10MG/ML) FOR IV START INTRADERMA ONE (06:45)
[2021-08-19] MEDS ORDERED: MIDAZOLAM 2 MG/2 ML VIAL ONE (07:03)
[2021-08-19] MEDS ORDERED: fentaNYL (PF) 50 MCG/ML 2 ML AMP ONE (07:03)
[2021-08-19] MEDS ORDERED: IOPAMIDOL M200 10 ML VIAL ONE (07:03)
[2021-08-19] MEDS ORDERED: methylPREDNISolone ACETATE 40 MG/ML 1 ML VIAL ONE (07:03)
--- NOTE | 2021-08-19 07:18 | P.PCN ---
Date of Procedure: 08/19/21 Procedure(s) Performed: PREOPERATIVE DIAGNOSIS: 1-Lumbar radiculopathy . -2-Lumber herniated disc disease. 3-lumbar degenerative disc disease. POSTOPERATIVE DIAGNOSIS: Same as preoperative diagnoses. PROCEDURE 1. Transforaminal epidural steroid injection under fluoroscopic guidance at right L4-5 level. (Fluoroscopy images stored on file in the radiology Department ) 2. Lumbar epidurogram . ANESTHESIA: Local with 1% lidocaine 3 ml , moderate sedation with intravenous Versed 2 mg and fentanyle 50 micrograms. EBL: Minimal PROCEDURE INDICATION: The patient with low back pain and radiculopathy symptoms unresponsive to conservative treatment. PROCEDURE DESCRIPTION / TECHNIQUE: The patient was seen and identified in the preoperative area. Risks, benefits, complications, and alternatives were discussed with the patient. The patient ag christos to proceed with the procedure and signed the consent. IV was started, and vital signs were stable. Patient was taken to the OR and time out was completed. The patient was placed in the prone position on procedure table and a pillow was placed under the abdomen to reduce lumbar lordosis. The lumbosacral area was prepped and draped in the usual sterile fashion. Critical pause was taken. Vital signs were closely monitored during the procedure. Conscious sedation was used during the procedure to decrease patient s anxiety. Using oblique fluoroscopy, the chin of the `AnnetteNatan dog at Right L4-5 level was identified, and the skin and deeper tissues just below was localized with 1% lidocaine. Subsequently, a 22-gauge 5-inch spinal needle was advanced under a tunneled view fluoroscopic guidance just underneath the chin of the `[place] dog at the right L4-5 Under lateral fluoroscopy, the needle was then advanced to the posterior border of the interforaminal space. After negative aspiration of CSF and blood and with no paresthesias, 1 mL Isovue 200 contrast dye was injected excellent epidurogram and outlining of the nerve root Subsequently, 3 mL of block solution containing 80 mg Depo-Medrol and 2 mL of 0.9% normal saline PF was injected. Needle was removed . At the end of the procedure, skin was cleansed, and bandages were applied. COMPLICATIONS:none DISPOSITION / PLANS: The patient was placed in a supine position and transferred to the recovery area in a stable condition for observation. There was no evidence of lower extremity motor or sensory deficit after the procedure. Patient was discharged from the recovery room after meeting discharge criteria. Home discharge instructions were given to the patient by the staff. The patient was reexamined prior to discharge.
[2021-08-19] MEDS ORDERED: IV FLUID CONTINUATION 1,000 ML IV ONE (07:21)
[2021-08-19 07:31] VITALS: RESP 14
[2021-08-19 07:38] VITALS: BP 111/74; PULSE 82
--- NOTE | 2021-08-19 09:24 | FL ---
EXAMINATION TYPE: FL guided pain mgmt statistic DATE OF EXAM: 08/19/2021 HISTORY: Fluoroscopy time 4 seconds of fluoroscopy provided. IMPRESSION: 1. Fluoroscopy time.
== END 2021-08-19 07:55 | disposition home or self-care (01) ==
LOC: ORPAIN 06:18
PROVIDERS: ATTEND Specialist
DX: M51.16 Intervertebral disc disorders with radiculopathy, lumbar region (principal)
CPT/HCPCS: 81025; 64483; J2250; J1030; J3010; Q9966; 62323; 99152

== ENCOUNTER 2024-07-04 09:14 | Emergency (ER) | payer OTHER ==
[2024-07-04 09:22] VITALS: RESP 18
--- NOTE | 2024-07-04 10:06 | ED ---
Abdominal Pain HPI - General Chief Complaint: Abdominal Pain Stated Complaint: Abd pain-18 weeks preg Time Seen by Provider: 07/04/24 09:28 Source: patient, RN notes reviewed Mode of arrival: ambulatory Limitations: no limitations - History of Present Illness Initial Comments: 23-year-old female presents emergency department with chief complaint of abdom inal discomfort, . Patient states she is not exactly sure how far along she has she believes she may be 18 to 20 weeks but states that she had a positive test 4 weeks ago but states that she has been having menstrual cycles for several months but not normal menstrual cycles. Patient denies any fevers or chills denies any dysuria no vaginal bleeding or vaginal discharge no change in bowel habits. - Related Data Home Medications Medication Instructions Recorded Confirmed norgestimate-ethinyl estradioL 1 tab PO HS 02/04/19 08/19/21 [Sprintec 28 Day Tablet] Allergies Allergy/AdvReac Type Severity Reaction Status Date / Time No Known Allergies Allergy Verified 07/04/24 09:17 Review of Systems ROS Statement: Those systems with pertinent positive or pertinent negative responses have been documented in the HPI. ROS Other: All systems not noted in ROS Statement are negative. Past Medical History Past Medical History: Asthma Additional Past Medical History / Comment(s): IBS, EXERCISE INDUCED ASTHMA, NO INHALER USE. History of Any Multi-Drug Resistant Organisms: None Reported Past Surgical History: Orthopedic Surgery Additional Past Surgical History / Comment(s): Right wrist surgery. PAIN CLINIC PROCEDURES Past Anesthesia/Blood Transfusion Reactions: No Reported Reaction Additional Past Anesthesia/Blood Transfusion Reaction / Comment(s): HAS NEVER HAD GENERAL ANESTHESIA. Past Psychological History: Anxiety, Depression Smoking Status: Never smoker Past Alcohol Use History: None Reported Past Drug Use History: Marijuana - Past Family History Father History Unknown: Yes Family Medical History: Diabetes Mellitus General Exam Limitations: no limitations General appearance: alert, in no apparent distress Head exam: Present: atraumatic, normocephalic, normal inspection Eye exam: Present: normal appearance, PERRL, EOMI. Absent: scleral icterus, conjunctival injection, periorbital swelling Respiratory exam: Present: normal lung sounds bilaterally. Absent: respiratory distress, wheezes, rales, rhonchi, stridor Cardiovascular Exam: Present: regular rate, normal rhythm, normal heart sounds. Absent: systolic murmur, diastolic murmur, rubs, gallop, clicks GI/Abdominal exam: Present: soft, tenderness, normal bowel sounds. Absent: distended, guarding, rebound, rigid Neurological exam: Present: alert, oriented X3, CN II-XII intact, reflexes normal. Absent: motor sensory deficit Skin exam: Present: warm, dry, intact, normal color. Absent: rash Course Vital Signs 07/04/24 09:17 Temperature 97.9 F Pulse Rate 91 Respiratory 18 Rate Blood Pressure 124/81 O2 Sat by Pulse 100 Oximetry Medical Decision Making - Medical Decision Making Was pt. sent in by a medical professional or institution (, PA, RETAIL SALES ASSOCIATE, urgent care, hospital, or residential...) When possible be specific @ -No Did you speak to anyone other than the patient for history (EMS, parent, family, police, friend...)? What history was obtained from this source @ -No Did you review nursing and triage notes (agree or disagree)? Why? @ -I reviewed and agree with nursing and triage notes Were old charts reviewed (outside hosp., previous admission, EMS record, old EKG, old radiological studies, urgent care reports/EKG's, residential records)? Report findings @ -[Reviewed prior ABO Rh and RIG SITE ENGINEER consultations Differential Diagnosis (chest pain, altered mental status, abdominal pain women, abdominal pain men, vaginal bleeding, weakness, fever, dyspnea, syncope, headache, dizziness, GI bleed, back pain, seizure, CVA, palpatations, mental health, musculoskeletal)? @ -Differential Abdominal Pain Women: Appendicitis, Cholecystitis, diverticulosis, ischemic bowel, pancreatitis, hepatitis, UTI, gastroenteritis, AAA, incarcerated hernia, bowel obstruction, constipation, inflammatory bowel, hepatitis, peptic ulcer disease, splenic infarction, perforated viscus, vulvitis, ovarian torsion, PID, kidney stone, placenta abruption, this is not meant to be an all-inclusive list EKG interpreted by me (3pts min.). @ -None X-rays interpreted by me (1pt min.). @ -None done CT interpreted by me (1pt min.). @ -None done U/S interpreted by me (1pt. min.). @ -Ultra sound OB showing intrauterine heart rate 130 with approximately gestation of 22 weeks and 5 days What testing was considered but not performed or refused? (CT, X-rays, U/S, labs)? Why? @ -None What meds were considered but not given or refused? Why? @ -None Did you discuss the management of the patient with other professionals (professionals i.e. , PA, RETAIL SALES ASSOCIATE, lab, RT, psych nurse, social media sr strategy manager, recreation therapy aides teacher, teacher, real estate loan officer, showcase trimmer)? Give summary @ -No Was smoking cessation discussed for >3mins.? @ -No Was critical care preformed (if so, how long)? @ -No Were there social determinants of health that impacted care today? How? (H omelessness, low income, unemployed, alcoholism, drug addiction, transportation, low edu. Level, literacy, decrease access to med. care, [facility], rehab)? @ -No Was there de-escalation of care discussed even if they declined (Discuss DNR or withdrawal of care, Hospice)? DNR status @ -No What co-morbidities impacted this encounter? (DM, HTN, Smoking, COPD, CAD, Cancer, CVA, ARF, Chemo, Hep., AIDS, mental health diagnosis, sleep apnea, morbid obesity)? @ -None Was patient admitted / discharged? Hospital course, mention meds given and route, prescriptions, significant lab abnormalities, going to OR and other pertinent info. @ -Discharge patient presented for abdominal pain. Patient's ultrasound reveals intrauterine 22 weeks and 5 days laboratory studies urinalysis unremarkable patient advised to go to labor and delivery for further evaluation and follow-up with RIG SITE ENGINEER. Undiagnosed new problem with uncertain prognosis? @ -No Drug Therapy requiring intensive monitoring for toxicity (Heparin, Nitro, Insulin, Cardizem)? @ -No Were any procedures done? @ -No Diagnosis/symptom? @ -Abdominal pain Acute, or Chronic, or Acute on Chronic? @ -Acute Uncomplicated (without systemic symptoms) or Complicated (systemic symptoms)? @ -[Uncomplicated Side effects of treatment? @ -No Exacerbation, Progression, or Severe Exacerbation? @ -No Poses a threat to life or bodily function? How? (Chest pain, USA, DC, pneumonia, PE, COPD, DKA, ARF, appy, cholecystitis, CVA, Diverticulitis, Homicidal, Suicidal, threat to staff... and all critical care pts) @ -No - Lab Data Result diagrams: 07/04/24 10:04 07/04/24 10:04 Lab Results 07/04/24 07/04/24 07/04/24 Range/Units 10:04 10:04 10:04 WBC 6.3 (3.8-10.6) k/uL RBC 3.72 L (3.80-5.40) m/uL Hgb 11.8 (11.4-16.0) gm/dL Hct 35.6 (34.0-46.0) % MCV 95.7 (80.0-100.0) fL MCH 31.8 (25.0-35.0) pg MCHC 33.2 (31.0-37.0) g/dL RDW 14.9 (11.5-15.5) % Plt Count 156 (150-450) k/uL MPV 8.1 Neutrophils % 77 % Lymphocytes % 19 % Monocytes % 2 % Eosinophils % 0 % Basophils % 0 % Neutrophils # 4.9 (1.3-7.7) k/uL Lymphocytes # 1.2 (1.0-4.8) k/uL Monocytes # 0.1 (0-1.0) k/uL Eosinophils # 0.0 (0-0.7) k/uL Basophils # 0.0 (0-0.2) k/uL Sodium 138 (137-145) mmol/L Potassium 3.8 (3.5-5.1) mmol/L Chloride 108 H (98-107) mmol/L Carbon Dioxide 24 (22-30) mmol/L Anion Gap 6 mmol/L BUN 9 (7-17) mg/dL Creatinine 0.44 L (0.52-1.04) mg/dL Est GFR (CKD-EPI)AfAm >90 (>60 ml/min/1.73 sqM) Est GFR (CKD-EPI)NonAf >90 (>60 ml/min/1.73 sqM) Glucose 78 (74-99) mg/dL Calcium 9.0 (8.4-10.2) mg/dL Total Bilirubin 0.6 (0.2-1.3) mg/dL AST 16 (14-36) U/L ALT 8 (4-34) U/L Alkaline Phosphatase 70 (38-126) U/L Total Protein 6.7 (6.3-8.2) g/dL Albumin 3.7 (3.5-5.0) g/dL Lipase 31 (23-300) U/L Urine Color Light Yellow Urine Appearance Cloudy H (Clear) Urine pH 6.5 (5.0-8.0) Ur Specific [place] 1.024 (1.001-1.035) Urine Protein Negative (Negative) Urine Glucose (UA) Negative (Negative) Urine Ketones Negative (Negative) Urine Blood Negative (Negative) Urine Nitrite Negative (Negative) Urine Bilirubin Negative (Negative) Urine Urobilinogen <2.0 (<2.0) mg/dL Ur Leukocyte Esterase Large H (Negative) Urine RBC 1 (0-5) /hpf Urine WBC 3 (0-5) /hpf Ur Squamous Epith Cells 17 H (0-4) /hpf Urine Bacteria Rare H (None) /hpf Urine Mucus Few H (None) /hpf Disposition Clinical Impression: Abdominal pain during Disposition: HOME SELF-CARE Condition: Stable Instructions (If sedation given, give patient instructions): Abdominal Pain in (ED) Additional Instructions: Please return to the Emergency Department if symptoms worsen or any other concerns. Is patient prescribed a controlled substance at d/c from ED?: No Referrals: Bianca Hinojosa MD [Primary Care Provider] - 1-2 days Time of Disposition: 11:53
[2024-07-04 10:15] LABS: Basophils % (A) 0 %; Eosinophils % (A) 0 %; HCT 35.6 % (34.0-46.0); HGB 11.8 gm/dL (11.4-16.0); Lymphocytes # (A) 1.2 k/uL (1.0-4.8); Lymphocytes % (A) 19 %; MCH 31.8 pg (25.0-35.0); MCHC 33.2 g/dL (31.0-37.0); MCV 95.7 fL (80.0-100.0); Mean Platelet Volume 8.1; Monocytes # (A) 0.1 k/uL (0-1.0); Monocytes % (A) 2 %; Neutrophils # (A) 4.9 k/uL (1.3-7.7); Neutrophils % (A) 77 %; Platelet Count 156 k/uL (150-450); RBC 3.72 m/uL (3.80-5.40); RDW 14.9 % (11.5-15.5); WBC 6.3 k/uL (3.8-10.6)
[2024-07-04 10:21] LABS: Appearance,Urine Cloudy (Clear); Bacteria,Urine Rare /hpf; Bilirubin,Urine Negative (Negative); Blood,Urine Negative (Negative); Color,Urine Light Yellow; Glucose,Urine (UA) Negative (Negative); Ketones,Urine Negative (Negative); Leukocyte Esterase,Urine Large (Negative); Mucus,Urine Few /hpf; Nitrite,Urine Negative (Negative); PH, Urine 6.5 (5.0-8.0); Protein,Urine Negative (Negative); RBC,Urine 1 /hpf (0-5); Specific Gravity,Urine 1.024 (1.001-1.035); Squamous Epithelial Cell,Urine 17 /hpf (0-4); Urobilinogen,Urine <2.0 mg/dL (<2.0); WBC,Urine 3 /hpf (0-5)
[2024-07-04 10:29] LABS: ALT 8 U/L (4-34); AST 16 U/L (14-36); African American GFR (CKD) >90 (>60 ml/min/1.73 sqM); Albumin 3.7 g/dL (3.5-5.0); Alkaline Phosphatase 70 U/L (38-126); Anion Gap 6 mmol/L; Blood Urea Nitrogen 9 mg/dL (7-17); Carbon Dioxide 24 mmol/L (22-30); Chloride 108 mmol/L (98-107); Glucose 78 mg/dL (74-99); Lipase 31 U/L (23-300); Non-African American GFR(CKD) >90 (>60 ml/min/1.73 sqM); Potassium 3.8 mmol/L (3.5-5.1); Sodium 138 mmol/L (137-145); Total Bilirubin 0.6 mg/dL (0.2-1.3); Total Protein 6.7 g/dL (6.3-8.2)
[2024-07-04] MEDS: SODIUM CHLORIDE 0.9% 1,000 ML IV STA (10:35)
--- NOTE | 2024-07-04 11:21 | US ---
EXAMINATION TYPE: US OB >= 14 wk fetus DATE OF EXAM: 07/04/2024 COMPARISON: None CLINICAL INDICATION: Female, 23 years old with history of pain; Cramping. No prior ultrasound. No p renatal care. Patient states she has been having her periods still. TECHNIQUE: Transabdominal (TA) GESTATIONAL AGE / DATING Physician Established: Not yet established Dates by LMP: (22 weeks/0 days) EDC: 11/07/24 Dates by First Scan: No previous this is first scan Dates by Current Scan: (22 weeks/5 days) EDC: 11/02/24 Beta HCG (if available): Not available at this time SURVEY IUP: Single PLACENTA: Posterior PREVIA: No Previa DEA: 15.2 cm Normal CERVICAL LENGTH (transabdominal: norm > 3.0cm): 3.4 cm BIOMETRY PRESENTATION: Vertex BPD: 5.4 cm 22 weeks / 3 days HC: 20.1 cm 22 weeks / 2 days AC: 18.4 cm 23 weeks / 2 days FL: 3.9 cm 22 weeks / 5 days ESTIMATED WEIGHT IN GRAMS: 541 grams ESTIMATED WEIGHT IN LBS/OZ: 1 lbs. 3 oz. WEIGHT PERCENTAGE BASED ON ESTABLISHED DATES: 85% HC/AC: 1.1 Normal FL/AC: 21% Normal HEART RATE: 130 bpm RHYTHM: Normal IMPRESSION: Single live intrauterine gestation with ultrasound age 22 weeks 5 days. Additional information as piper cribed above. [facility], , 07/04/2024 11:19 AM
[2024-07-04 12:17] VITALS: BP 128/80; PULSE 81
[2024-07-04 12:33] VITALS: TEMP 97.8
== END 2024-07-04 12:45 | disposition home or self-care (01) ==
LOC: EC 09:14
CPT/HCPCS: 36415; 76805; 80053; 81001; 83690; 85025; 96360; 99284

== ENCOUNTER 2024-07-04 12:48 | Outpatient (CLI) | payer OTHER ==
[2024-07-04 14:04] VITALS: BP 109/61; PULSE 76; RESP 16; TEMP 97.3
--- NOTE | 2024-07-18 09:47 | P.MSEPDOC ---
Presenting Problems - Arrival Data Date of Arrival on Unit: 07/04/24 Time of Arrival on Unit: 12:48 Mode of Transport: Ambulatory - Complaint OB-Reason for Admission/Chief Complaint: Pain Comment: lower right pelvic pain Medical History - Information : 4 Para: 2 Term: 2 : 0 Abortions: Spontaneous or Elective: 1 Number of Living Children: 2 - Gestational Age Gestational Age by JUAN ANTONIO (wks/days): 22 Weeks and 5 Days Review of Systems - Review of Systems Constitutional: No problems Breast: No problems ENT: No problems Cardiovascular: No problems Respiratory: No problems Gastrointestinal: No problems Genitourinary: No problems Musculoskeletal: No problems Neurological: No problems Skin: No problems Vital Signs - Temperature Temperature: 97.3 F Temperature Source: Temporal Artery Scan - Pulse Right Brachial Pulse Rate: 76 Pulse Assessment Method: Automatic Cuff - Respirations Respiratory Rate: 16 Oxygen Delivery Method: Room Air O2 Sat by Pulse Oximetry: 100 - Blood Pressure Right Arm Blood Pressure: 109/61 Blood Pressure Mean: 77 Blood Pressure Source: Automatic Cuff Medical Screen Scoring - Uterine Contractions Frequency From (mins): 0 - Assessment - Baby A Baseline FHR: 130 Heart Rate - NICHD Category: Category I (Normal) Physician Notification - Physician Notified Physician Notified Date: 07/04/24 Physician Notified Time: 13:21 Physician: Hiwot Chatterjee New Order Received: Yes (abx sent, d/c with follow up at [facility] appt 07/18) Maternal Triage Index - Stat/Priority 1 Stat Priority 1: No - Urgent/Priority 2 Urgent Priority 2: Yes Provider Notified: Hiwot Chatterjee Provider Notified Time: 13:21 Criteria Met for Priority 2: 22.5 weeks lower right pelvic pain, no contractions, sent after EC workup Disposition - Disposition OB Disposition: Triage, Discharge to home, Written follow up instructions reviewed Discharge Date: 07/04/24 Discharge Time: 13:25 I agree with the RN Medical Screening Exam: Yes Case reviewed; plan agreed upon as documented in EMR&OBIX.: Yes Diagnosis: RELATED CONDITIONS, UNSPECIFIED, SECOND TRIMESTER
== END 2024-07-04 13:25 | disposition home or self-care (01) ==
LOC: FBPOP 12:48
PROVIDERS: ATTEND Obstetrics & Gynecology Obstetrics
CPT/HCPCS: 99213

== ENCOUNTER 2024-07-30 21:45 | Emergency (ER) | payer OTHER ==
[2024-07-30 21:53] VITALS: TEMP 98.2
[2024-07-30] MEDS: ACETAMINOPHEN TAB 325 MG TAB PO STA (22:25)
[2024-07-30] MEDS: SODIUM CHLORIDE 0.9% 1,000 ML IV STA (22:25)
[2024-07-30 22:30] LABS: Basophils % (A) 0 %; Eosinophils # (A) 0.1 k/uL (0-0.7); Eosinophils % (A) 1 %; HCT 32.5 % (34.0-46.0); HGB 11.1 gm/dL (11.4-16.0); Lymphocytes % (A) 25 %; MCH 31.9 pg (25.0-35.0); MCHC 34.2 g/dL (31.0-37.0); MCV 93.3 fL (80.0-100.0); Mean Platelet Volume 8.5; Monocytes # (A) 0.3 k/uL (0-1.0); Monocytes % (A) 4 %; Neutrophils # (A) 5.5 k/uL (1.3-7.7); Neutrophils % (A) 69 %; Platelet Count 167 k/uL (150-450); RBC 3.48 m/uL (3.80-5.40); RDW 13.8 % (11.5-15.5); WBC 7.9 k/uL (3.8-10.6)
[2024-07-30 22:40] LABS: INR 0.9 (<1.2); Partial Thromboplastin Time 25.5 sec (22.0-30.0); Prothrombin Time 9.7 sec (10.0-12.5)
[2024-07-30 22:42] LABS: ALT 8 U/L (4-34); AST 17 U/L (14-36); African American GFR (CKD) >90 (>60 ml/min/1.73 sqM); Albumin 3.4 g/dL (3.5-5.0); Alkaline Phosphatase 89 U/L (38-126); Anion Gap 7 mmol/L; Blood Urea Nitrogen 11 mg/dL (7-17); Calcium 8.8 mg/dL (8.4-10.2); Carbon Dioxide 18 mmol/L (22-30); Chloride 112 mmol/L (98-107); Glucose 104 mg/dL (74-99); Lipase 35 U/L (23-300); Magnesium 1.7 mg/dL (1.6-2.3); Non-African American GFR(CKD) >90 (>60 ml/min/1.73 sqM); Potassium 3.7 mmol/L (3.5-5.1); Sodium 137 mmol/L (137-145); Total Bilirubin 0.6 mg/dL (0.2-1.3); Total Protein 6.4 g/dL (6.3-8.2)
--- NOTE | 2024-07-30 22:44 | ED ---
Chest Pain HPI - General Chief Complaint: Chest Pain Stated Complaint: Chest pain- 26 wks preg Time Seen by Provider: 07/30/24 22:06 Source: patient, EMS Mode of arrival: EMS Limitations: no limitations - History of Present Illness Initial Comments: 23-year-old female currently 26 weeks presenting with chief complaint of chest pain. G4, Patient was driving earlier this evening when she started experiencing sharp pain across the lower portion of her chest. States that at that time she was also a bit short of breath. She then pulled over and called 911. She admits to nausea, no vomiting. No bleeding. States that she now is having some sporadic abdominal pain as well, nonlocalized. No fevers. She has had a cough. No congestion or sore throat. No dysuria or hematuria. No lower extremity swelling. Follows with [facility] Dr. Chatterjee. - Related Data Previous Rx's Medication Instructions Recorded Cephalexin [Keflex] 500 mg PO Q12HR 7 Days #14 cap 07/31/24 Allergies Allergy/AdvReac Type Severity Reaction Status Date / Time Latex, Natural Rubber AdvReac Itching Verified 07/30/24 21:53 Review of Systems ROS Statement: Those systems with pertinent positive or pertinent negative responses have been documented in the HPI. ROS Other: All systems not noted in ROS Statement are negative. Past Medical History Past Medical History: Asthma Additional Past Medical History / Comment(s): IBS, EXERCISE INDUCED ASTHMA, NO INHALER USE. History of Any Multi-Drug Resistant Organisms: None Reported Past Surgical History: Orthopedic Surgery Additional Past Surgical History / Comment(s): Right wrist surgery. PAIN CLINIC PROCEDURES Past Anesthesia/Blood Transfusion Reactions: No Reported Reaction Additional Past Anesthesia/Blood Transfusion Reaction / Comment(s): HAS NEVER HAD GENERAL ANESTHESIA. Past Psychological History: Anxiety, Depression Smoking Status: Never smoker - Past Family History Father History Unknown: Yes Family Medical History: Diabetes Mellitus General Exam Limitations: no limitations General appearance: alert, in no apparent distress Head exam: Present: atraumatic, normocephalic, normal inspection Eye exam: Present: normal appearance, EOMI Neck exam: Present: normal inspection. Absent: meningismus Respiratory exam: Present: normal lung sounds bilaterally. Absent: respiratory distress, wheezes, rales, rhonchi, stridor Cardiovascular Exam: Present: regular rate, normal rhythm, normal heart sounds. Absent: systolic murmur, diastolic murmur, rubs, gallop, clicks Neurological exam: Present: alert, oriented X3 Psychiatric exam: Present: normal affect, normal mood Skin exam: Present: warm, dry Course Vital Signs 07/30/24 07/30/24 07/31/24 21:46 23:41 00:22 Temperature 98.2 F Pulse Rate 79 68 76 Respiratory 18 16 15 Rate Blood Pressure 118/61 131/68 111/65 O2 Sat by Pulse 96 97 96 Oximetry 07/31/24 00:44 Temperature Pulse Rate 76 Respiratory 16 Rate Blood Pressure 111/65 O2 Sat by Pulse 97 Oximetry Chest Pain MDM - MDM Was pt. sent in by a medical professional or institution (, PA, [employer], urgent care, hospital, or long term...) When possible be specific @ -No Did you speak to anyone other than the patient for history (EMS, parent, family, police, friend...)? What history was obtained from this source @ -No Did you review nursing and triage notes (agree or disagree)? Why? @ -I reviewed and agree with nursing and triage notes Were old charts reviewed (outside hosp., previous admission, EMS record, old EKG, old radiological studies, urgent care reports/EKG's, long term records)? Report findings @ -No old charts were reviewed Differential Diagnosis (chest pain, altered mental status, abdominal pain women, abdominal pain men, vaginal bleeding, weakness, fever, dyspnea, syncope, headache, dizziness, GI bleed, back pain, seizure, CVA, palpatations, mental health, musculoskeletal)? @ -MDM Differential Chest Pain: Stable Angina, Unstable Angina, STEMI, NSTEMI Aortic Dissection, Pneumothorax, Musculoskeletal, Esophageal Spasm GERD, Cholecystitis, Pancreatitis, Zo ster This is not meant to be an all-inclusive list. EKG interpreted by me (3pts min.). @ -EKG shows sinus rhythm ventricular rate 84. GA interval 139. QRS 110. QT 364. QTc 405. X-rays interpreted by me (1pt min.). @ -Chest x-ray shows no acute process CT interpreted by me (1pt min.). @ -None done U/S interpreted by me (1pt. min.). @ -Ultrasound shows single live intrauterine gestation. Breech presentation currently identified. No placenta previa. Estimated amniotic fluid index is within normal limits What testing was considered but not performed or refused? (CT, X-rays, U/S, labs)? Why? @ -D-dimer offered, shared decision making utilized and patient does not wish to have D-dimer drawn What meds were considered but not given or refused? Why? @ -None Did you discuss the management of the patient with other professionals (professionals i.e. Dr., PA, [employer]ER, lab, RT, psych nurse, criminal justice social worker, beading machine operator, teacher, community chest officer, rn case manager)? Give summary @ -No Was smoking cessation discussed for >3mins.? @ -No Was critical care preformed (if so, how long)? @ -No Were there social determinants of health that impacted care today? How? (Homelessness, low income, unemployed, alcoholism, drug addiction, transportation, low edu. Level, literacy, decrease access to med. care, [place] [facility], rehab)? @ -No Was there de-escalation of care discussed even if they declined (Discuss DNR or withdrawal of care, Hospice)? DNR status @ -No What co-morbidities impacted this encounter? (DM, HTN, Smoking, COPD, CAD, Cancer, CVA, ARF, Chemo, Hep., AIDS, mental health diagnosis, sleep apnea, morbid obesity)? @ -None Was patient admitted / discharged? Hospital course, mention meds given and route, prescriptions, significant lab abnormalities, going to OR and other pertinent info. @ -23-year-old female currently 26 weeks presenting with chief complaint of chest pain that started tonight. History and physical examination are conducted. Patient is having some abdominal pain as well. Ultrasound was obtained which shows single live intrauterine gestation. Chest x-ray shows no acute process and EKG shows sinus rhythm. Negative troponin. Urine shows large leukocytes with 59 WBCs, patient will be treated for asymptomatic bacteria with Keflex. I discussed the patient's results. On reassessment she reports significant improvement in her symptoms. I explained to the patient what a D- dimer is, discussed risk versus benefit and offered to perform a D-dimer. Patient understands risk versus benefit and states that she is feeling much better and does not wish to have D-dimer drawn at this time. Patient is ready to be discharged home. She will follow-up with her [facility]URSE [facility]AL [facility]. Discharged. Follow-up with PCP. Report back to ER with any new or worsening symptoms. Discussed return parameters and answered all questions. Patient conveyed verbal understanding and agreed to the plan. I discussed this case in detail with my attending Dr. Escobar Undiagnosed new problem with uncertain prognosis? @ -No Drug Therapy requiring intensive monitoring for toxicity (Heparin, Nitro, Insulin, Cardizem)? @ -No Were any procedures done? @ -No Diagnosis/symptom? @ -Atypical chest pain, asymptomatic bacteria Acute, or Chronic, or Acute on Chronic? @ -Acute Uncomplicated (without systemic symptoms) or Complicated (systemic symptoms)? @ -Uncomplicated Side effects of treatment? @ -No Exacerbation, Progression, or Severe Exacerbation? @ -No Poses a threat to life or bodily function? How? (Chest pain, [place], [place], pneumonia, PE, COPD, DKA, ARF, appy, cholecystitis, CVA, Diverticulitis, Homicidal, Suicidal, threat to staff... and all critical care pts) @ -Low likelihood Disposition Clinical Impression: Atypical chest pain, 26 weeks gestation of , Asymptomatic bacteriuria Disposition: HOME SELF-CARE Condition: Good Instructions (If sedation given, give patient instructions): Chest Pain (ED), Abdominal Pain in (ED) Additional Instructions: Follow-up with your PCP and [facility] in 1 to 3 days. Report back to ER with any new or worsening symptoms. Take Tylenol as needed Prescriptions: Cephalexin [Keflex] 500 mg PO Q12HR 7 Days #14 cap Is patient prescribed a controlled substance at d/c from ED?: No Referrals: Bianca Hinojosa MD [Primary Care Provider] - 1-2 days Hiwot Chatterjee DO [Doctor of Osteopathic Medicine] - 1-2 days Time of Disposition: 00:37
--- NOTE | 2024-07-30 23:02 | US ---
EXAMINATION TYPE: US OB >= 14 wk fetus DATE OF EXAM: 07/30/2024 COMPARISON: 07/04/24 CLINICAL INDICATION: Female, 23 years old with history of abdominal pain; Patient states chest pain t hat radiates to abdomen TECHNIQUE: Transabdominal (TA) FINDINGS: GESTATIONAL AGE / DATING Physician Established: (26 weeks/3 days) EDC: 11/02/2024 Dates by LMP: (26 weeks/3 days) EDC: 11/02/2024 Dates by First Scan: ( weeks/ days) EDC: Dates by Current Scan: (26 weeks/3 days) EDC: 11/02/2024 Beta HCG (if available): Not available at this time SURVEY IUP: Single PLACENTA: Posterior PREVIA: No Previa, the placenta tip appears to lie 6.0cm away from the internal os DEA: 19.1 cm CERVICAL LENGTH (transabdominal: norm > 3.0cm): 3.6 cm BIOMETRY PRESENTATION: Breech LIE: Longitudinal BPD: 6.5 cm 26 weeks / 2 days HC: 24.7 cm 26 weeks / 6 days AC: 22.0 cm 26 weeks / 4 days FL: 4.7 cm 25 weeks / 6 days ESTIMATED WEIGHT IN GRAMS: 912 grams ESTIMATED WEIGHT IN LBS/OZ: 2 lbs. 0 oz. WEIGHT PERCENTAGE BASED ON ESTABLISHED DATES: 31% HC/AC: 1.12 Normal FL/AC: 22% Normal HEART RATE: 136 bpm RHYTHM: Normal Single live intrauterine gestation is redemonstrated. A breech presentation is now noted. No cervical thinning. No placenta previa. biometry measurements congruent and within normal limits with sa tisfactory interval progression. Estimated amniotic fluid index is within normal limits. IMPRESSION: As above. A breech presentation to fetus is currently identified and requires ultrasound follow-up. [facility], , 07/30/2024 11:00 PM
--- NOTE | 2024-07-30 23:09 | XR ---
EXAMINATION TYPE: XR chest 2V DATE OF EXAM: 07/30/2024 COMPARISON: Chest x-ray January 26, 2019 HISTORY: Currently 26 weeks with chest pain TECHNIQUE: Frontal and lateral views of the chest are obtained. FINDINGS: There is no focal air space opacity, pleural effusion, or pneumothorax seen. The cardiac silhouette size remains within normal limits. The osseous structures are intact. Overlying EKG lead s are now present. IMPRESSION: No acute cardiopulmonary process. [facility], , 07/30/2024 11:07 PM
[2024-07-30 23:35] LABS: Amorphous Sediment,Urine Rare /hpf; Appearance,Urine Cloudy (Clear); Bacteria,Urine Occasional /hpf; Bilirubin,Urine Negative (Negative); Blood,Urine Negative (Negative); Color,Urine Yellow; Glucose,Urine (UA) Negative (Negative); Hyaline Casts,Urine 1 /lpf (0-2); Ketones,Urine Negative (Negative); Leukocyte Esterase,Urine Large (Negative); Mucus,Urine Many /hpf; Nitrite,Urine Negative (Negative); PH, Urine 6.5 (5.0-8.0); Protein,Urine Trace (Negative); RBC,Urine 2 /hpf (0-5); Specific Gravity,Urine 1.024 (1.001-1.035); Squamous Epithelial Cell,Urine 22 /hpf (0-4); Urobilinogen,Urine <2.0 mg/dL (<2.0); WBC,Urine 59 /hpf (0-5)
[2024-07-31 00:23] VITALS: BP 111/65; PULSE 76
[2024-07-31 00:45] VITALS: RESP 16
== END 2024-07-31 00:46 | disposition home or self-care (01) ==
LOC: EC 21:45
DX: O26.892 Other specified pregnancy related conditions, second trimester (principal); R07.89 Other chest pain; R82.71 Bacteriuria; R87.5 Abnormal microbiological findings in specimens from female genital organs; Z91.040 Latex allergy status; Z3A.26 26 weeks gestation of pregnancy
CPT/HCPCS: 36415; 71046; 76805; 80053; 81001; 83690; 83735; 84484; 85025; 85610; 85730; 87086; 93005; 96360; 99285

== ENCOUNTER 2024-09-18 18:08 | Outpatient (CLI) | payer OTHER ==
[2024-09-18 18:50] LABS: Appearance,Urine Cloudy (Clear); Bacteria,Urine Rare /hpf; Bilirubin,Urine Negative (Negative); Blood,Urine Negative (Negative); Color,Urine Yellow; Glucose,Urine (UA) Negative (Negative); Ketones,Urine 3+ (Negative); Leukocyte Esterase,Urine Small (Negative); Mucus,Urine Many /hpf; Nitrite,Urine Negative (Negative); Protein,Urine Trace (Negative); RBC,Urine 1 /hpf (0-5); Specific Gravity,Urine 1.033 (1.001-1.035); Squamous Epithelial Cell,Urine 9 /hpf (0-4); Urobilinogen,Urine <2.0 mg/dL (<2.0); WBC,Urine 2 /hpf (0-5)
[2024-09-18 20:41] VITALS: BP 144/81; PULSE 107; RESP 16; TEMP 97.7
--- NOTE | 2024-09-22 11:57 | P.MSEPDOC ---
Presenting Problems - Arrival Data Date of Arrival on Unit: 09/18/24 Time of Arrival on Unit: 18:08 Mode of Transport: Ambulatory - Complaint OB-Reason for Admission/Chief Complaint: Other Comment: patient presents to triage with cramping and iron smell. Medical History - Information : 4 Para: 2 Term: 1 : 0 Abortions: Spontaneous or Elective: 1 Number of Living Children: 1 - Gestational Age Gestational Age by JUAN ANTONIO (wks/days): 33 Weeks and 4 Days Review of Systems - Review of Systems Constitutional: No problems Breast: No problems ENT: No problems Cardiovascular: No problems Respiratory: No problems Gastrointestinal: No problems Genitourinary: No problems Musculoskeletal: No problems Neurological: No problems Skin: No problems Vital Signs - Temperature Temperature: 97.7 F Temperature Source: Temporal Artery Scan - Pulse Pulse Oximetery Pulse Rate: 107 Pulse Assessment Method: Pulse Oximetry - Respirations Respiratory Rate: 16 Oxygen Delivery Method: Room Air - Blood Pressure Right Arm Blood Pressure: 144/81 Blood Pressure Mean: 102 Blood Pressure Source: Automatic Cuff Physician Notification - Physician Notified Physician Notified Date: 09/18/24 Physician Notified Time: 19:26 Physician: Discharge New Order Received: No Maternal Triage Index - Maternal Triage Index Presenting for scheduled procedure w/no complaint: No - Stat/Priority 1 Stat Priority 1: No - Urgent/Priority 2 Urgent Priority 2: No - Prompt/Priority 3 Prompt Priority 3: No - Non-Urgent/Priority 4 Non-Urgent Priority 4: Yes Criteria Met for Priority 4: patient presents to triage with cramping and iron smell. Disposition - Disposition OB Disposition: Discharge to home Discharge Date: 09/18/24 Discharge Time: 20:43 I agree with the RN Medical Screening Exam: Yes Physician's MSE Comment: I have neither seen nor examined the patient. Case reviewed; plan agreed upon as documented in EMR&OBIX.: Yes Diagnosis: RELATED CONDITIONS, UNSPECIFIED, THIRD TRIMESTER
== END 2024-09-18 20:44 ==
LOC: FBPOP 18:08
PROVIDERS: ATTEND Obstetrics & Gynecology
DX: O26.93 Pregnancy related conditions, unspecified, third trimester (principal); Z3A.33 33 weeks gestation of pregnancy; F12.90 Cannabis use, unspecified, uncomplicated; Z91.040 Latex allergy status
CPT/HCPCS: 59025; 81001; G0463; 99213

== ENCOUNTER 2024-10-29 06:19 | Inpatient (IN) | payer OTHER ==
[2024-10-29] MEDS ORDERED: TERBUTALINE 1 MG/ML VIAL SQ PRN (06:27)
[2024-10-29] MEDS ORDERED: CARBOPROST TROMETHAMINE 250 MCG/ML 1 ML AMP IM PRN (06:27)
[2024-10-29] MEDS ORDERED: LIDOCAINE 0.5% (PF) 5 MG/ML (50 ML SDV) SQ PRN (06:27)
[2024-10-29] MEDS ORDERED: TRANEXAMIC 1,000 MG/100ML-NACL 1,000 MG in EMPTY BAG 1 BAG IV PRN (06:27)
[2024-10-29] MEDS ORDERED: miSOPROStoL 200 MCG TAB PO PRN (06:27)
[2024-10-29] MEDS ORDERED: METHYLERGONOVINE 0.2 MG/ML 1 ML AMP IM PRN (06:27)
[2024-10-29] MEDS ORDERED: miSOPROStoL 200 MCG TAB RECTAL PRN (06:27)
[2024-10-29] MEDS ORDERED: OXYTOCIN 10 UNIT/ML 1 ML VIAL IM PRN (06:27)
[2024-10-29] MEDS: LACTATED RINGERS 1,000 ML IV SCH (07:02)
[2024-10-29] MEDS: OXYTOCIN 30 UNITS/500 ML NS 30 UNIT in SALINE 1 500ML.BAG IV SCH (07:06)
[2024-10-29 07:26] LABS: Basophils % (A) 0 %; Eosinophils % (A) 0 %; HCT 32.9 % (34.0-46.0); HGB 10.9 gm/dL (11.4-16.0); Lymphocytes # (A) 2.2 k/uL (1.0-4.8); Lymphocytes % (A) 25 %; MCH 29.8 pg (25.0-35.0); MCHC 33.2 g/dL (31.0-37.0); MCV 89.7 fL (80.0-100.0); Mean Platelet Volume 8.9; Monocytes # (A) 0.4 k/uL (0-1.0); Monocytes % (A) 4 %; Neutrophils # (A) 5.8 k/uL (1.3-7.7); Neutrophils % (A) 68 %; Platelet Count 146 k/uL (150-450); RBC 3.67 m/uL (3.80-5.40); RDW 14.7 % (11.5-15.5); WBC 8.5 k/uL (3.8-10.6)
[2024-10-29] MEDS ORDERED: fentaNYL (PF) 50 MCG/ML 5 ML AMP ONE (10:35)
[2024-10-29] MEDS ORDERED: SODIUM CHLORIDE 0.9% 250 ML BAG ONE (10:35)
[2024-10-29] MEDS ORDERED: ROPIVACAINE 5 MG/ML 30 ML VIAL ONE (10:35)
--- NOTE | 2024-10-29 12:36 | P.HPOB ---
History of Present Illness H&P Date: 10/29/24 Chief Complaint: IUP at 39-3/7 weeks 23-year-old 5 para 2-0-0-2 2 presented to labor and delivery at 39-3/7 weeks for scheduled induction of labor. Patient has been receiving routine care which has been essentially uncomplicated. This morning patient notes good movement, occasional contractions no loss of fluid or vaginal bleeding. On blood work this patient has a blood type of O+, rubella status nonimmune, hepatitis B surface antigen negative, HIV negative, RPR is nonreactive, grew beta strep cultures negative. Review of Systems Constitutional: Denies chills, Denies fatigue, Denies fever Ears, nose, mouth and throat: Denies headache Cardiovascular: Reports leg edema Respiratory: Denies dyspnea Gastrointestinal: Denies constipation, Denies diarrhea, Denies nausea, Denies vomiting Genitourinary: Reports Past Medical History Past Medical History: Asthma Additional Past Medical History / Comment(s): IBS, EXERCISE INDUCED ASTHMA, NO INHALER USE. History of Any Multi-Drug Resistant Organisms: None Reported Past Surgical History: Orthopedic Surgery Additional Past Surgical History / Comment(s): Right wrist surgery. PAIN CLINIC PROCEDURES Past Anesthesia/Blood Transfusion Reactions: No Reported Reaction Additional Past Anesthesia/Blood Transfusion Reaction / Comment(s): HAS NEVER HAD GENERAL ANESTHESIA. Past Psychological History: Anxiety, Depression Additional Psychological History / Comment(s): TAKES NO MEDS, ALWAYS LOOKS AT THE "[employer]" Smoking Status: Never smoker Past Alcohol Use History: None Reported Past Drug Use History: Marijuana - Past Family History Father History Unknown: Yes Family Medical History: Diabetes Mellitus Medications and Allergies Home Medications Medication Instructions Recorded Confirmed Type Vit No.179/Iron/Folic 1 tab PO ONCE 09/18/24 10/29/24 History [ Tablet] Allergies Allergy/AdvReac Type Severity Reaction Status Date / Time Latex, Natural Rubber AdvReac Itching Verified 10/21/24 15:06 Exam Osteopathic Statement: *. No significant issues noted on an osteopathic structural exam other than those noted in the History and Physical/Consult. Vital Signs Temp Pulse Resp BP Pulse Ox 10/29/24 08:00 97.3 F L 100 16 124/77 99 Intake and Output 10/28/24 10/29/24 10/29/24 22:59 06:59 14:59 Other: Weight 97.522 kg 97.522 kg Targeted physical exam is performed this date General Is well-nourished well- developed female in no acute distress, breathing is noted to be nonlabored, heart has a regular rate and rhythm, abdomen is gravid and appropriate for gestational age, heart tones are noted to be category 1 and she is norris irregularly. On cervical exam she is 3, 70, -2 station amniotomy is performed and clear fluid is obtained. Results Result Diagrams: 10/29/24 07:00 Abnormal Lab Results - Last 24 Hours (Table) 10/29/24 Range/Units 07:00 RBC 3.67 L (3.80-5.40) m/uL Hgb 10.9 L (11.4-16.0) gm/dL Hct 32.9 L (34.0-46.0) % Plt Count 146 L (150-450) k/uL Assessment and Plan (1) Term Current Visit: No Status: Acute Code(s): Z34.80 - ENCOUNTER FOR SUPRVSN OF NORMAL , UNSP TRIMESTER SNOMED Code(s): 60891198 Plan: 23-year-old 5 para 2 at 39-3/7 weeks presents for induction of labor. Patient is admitted and Pitocin induction of labor is begun. Amniotomy is performed clear fluid was obtained. Options for analgesia are discussed with patient and she will consider. Anticipate spontaneous vaginal delivery.
[2024-10-29] MEDS ORDERED: diphenhydrAMINE 50 MG CAP PO PRN (13:57)
[2024-10-29] MEDS ORDERED: diphenhydrAMINE 50 MG/ML 1 ML VIAL IVP PRN ×2 (13:57)
[2024-10-29] MEDS ORDERED: LANOLIN CREAM 1 GM TUBE TOPICAL PRN (13:57)
[2024-10-29] MEDS ORDERED: SIMETHICONE 80 MG CHEWABLE PO PRN (13:57)
[2024-10-29] MEDS ORDERED: diphenhydrAMINE 25 MG CAP PO PRN (13:57)
[2024-10-29] MEDS ORDERED: HYDROCORTISONE 2.5% RECTAL CREAM 30 GM TUBE RECTAL PRN (13:57)
[2024-10-29] MEDS ORDERED: ZOLPIDEM 5 MG TAB PO PRN (13:57)
--- NOTE | 2024-10-29 14:00 | P.PROBDLV ---
Vaginal Delivery Note - . Vaginal Delivery Note: Viable male delivered at 1346, weight of 7 pounds 9 ounces, Apgars of 9 and 9 at 1 and 5 minutes respectively. 23-year-old 5 para 2-0-2-2 at 39-3/7 weeks that presented to labor and delivery for induction of labor. Patient was admitted and Pitocin induction of labor was begun. Amniotomy was performed clear fluid was obtained. Patient made good progress in labor eventually becoming uncomfortable and requesting epidural. Epidural was placed without difficulty by the anesthesia department. Patient progressed to complete began pushing and with excellent maternal effort had a normal spontaneous vaginal delivery of a viable male infant at 1346, loose nuchal was noted at the time of delivery and reduced at the perineum. Spontaneous cry was noted at . After 2-minute delay the umbilical cord was doubly clamped and cut. Placenta was delivered spontaneously intact with a three-vessel cord being noted. On inspection the patient's vaginal vault no lacerations were appreciated. All counts were to be correct x 2. Patient and infant tolerated delivery well and are resting comfortably.
[2024-10-29] MEDS: IBUPROFEN 800 MG TAB PO SCH (17:22)
[2024-10-29] MEDS: SENNOSIDES-DOCUSATE SODIUM 1 EACH TAB PO SCH (20:28)
[2024-10-30 02:57] VITALS: RESP 15
[2024-10-30] MEDS: ACETAMINOPHEN TAB 500 MG TAB PO SCH (03:30)
[2024-10-30] MEDS: MEASLES-MUMPS-RUBELLA VACC/PF 12,500 UNIT/0.5 ML VIAL SQ ONE (05:29)
[2024-10-30 07:14] LABS: Basophils % (A) 0 %; Eosinophils # (A) 0.1 k/uL (0-0.7); Eosinophils % (A) 1 %; HCT 35.4 % (34.0-46.0); HGB 11.6 gm/dL (11.4-16.0); Hypochromasia Slight; Lymphocytes # (A) 1.9 k/uL (1.0-4.8); Lymphocytes % (A) 19 %; MCH 29.9 pg (25.0-35.0); MCHC 32.9 g/dL (31.0-37.0); Mean Platelet Volume 9.1; Monocytes # (A) 0.5 k/uL (0-1.0); Monocytes % (A) 4 %; Neutrophils # (A) 7.5 k/uL (1.3-7.7); Neutrophils % (A) 74 %; Platelet Count 144 k/uL (150-450); RBC 3.89 m/uL (3.80-5.40); RDW 14.8 % (11.5-15.5); WBC 10.1 k/uL (3.8-10.6)
[2024-10-30 07:55] VITALS: BP 128/87; PULSE 67; TEMP 97.9
[2024-10-30] MEDS: PRENATAL VIT-IRON-FOLIC ACID 1 EACH TABLET PO SCH (08:10)
--- NOTE | 2024-10-30 12:54 | P.DS ---
Providers Date of admission: 10/29/24 06:19 Expected date of discharge: 10/30/24 Attending physician: Hiwot Chatterjee Primary care physician: Stated None - Discharge Diagnosis(es) (1) Term Current Visit: No Status: Acute (2) Status post normal vaginal delivery Current Visit: No Status: Acute Hospital Course: 23-year-old 5 now para 3-0-2-3 presented to labor and delivery at 39-3/7 weeks for induction of labor. Patient had been receiving routine care which had been essentially uncomplicated. Patient was admitted to labor and delivery and Pitocin induction of labor was begun. Amniotomy was performed and clear fluid was obtained. Patient progressed through labor eventually coming uncomfortable and requesting epidural. Epidural was placed without difficulty by the anesthesia department. Patient progressed to complete began pushing and had a normal spontaneous vaginal delivery of a viable male at 1346, weight of 7 pounds 9 ounces, Apgars of 9 and 9 at 1 and 5 minutes respectively. No vaginal lacerations were appreciated after delivery. Patient has done well . On this day #1 she is ambulating and voiding without difficulty. She is tolerating a regular diet without nausea or vomiting. She states her pain is well-controlled. She would like discharge home later this afternoon. Patient Condition at Discharge: Good Plan - Discharge Summary New Discharge Prescriptions: No Action Vit No.179/Iron/Folic [ Tablet] 1 tab PO ONCE Discharge Medication List Vit No.179/Iron/Folic [ Tablet] 1 tab PO ONCE 09/18/24 [History] Follow up Appointment(s)/Referral(s): Hiwot Chatterjee DO [Doctor of Osteopathic Medicine] - 12/09/24 11:30 am Patient Instructions/Handouts: Vaginal Delivery (GEN), Vaginal Delivery (DC) Activity/Diet/Wound Care/Special Instructions: No tub baths intercourse until 6 weeks . [id number] ibuprofen 600 mg or 3 tablets every 6 hours as needed for pain. Patient is to be seen in the office for routine check at 6 weeks. Should she have any concerns prior to this appointment she is urged to call the office and be seen sooner. Discharge Disposition: HOME SELF-CARE
== END 2024-10-30 14:30 | disposition home or self-care (01) | DRG 560 ==
LOC: 4FBP 06:19
PROVIDERS: ADMIT Obstetrics & Gynecology Obstetrics; ATTEND Obstetrics & Gynecology Obstetrics
PROC: 10E0XZZ Delivery of Products of Conception, External Approach (ICD-10-PCS; principal; 2024-10-29)
PROC: 10907ZC Drainage of Amniotic Fluid, Therapeutic from Products of Conception, Via Natural or Artificial Opening (ICD-10-PCS; principal; 2024-10-29)
PROC: 3E033VJ Introduction of Other Hormone into Peripheral Vein, Percutaneous Approach (ICD-10-PCS; principal; 2024-10-29)
DX: O80 Encounter for full-term uncomplicated delivery (principal); Z37.0 Single live birth; Z3A.39 39 weeks gestation of pregnancy; Z91.040 Latex allergy status
CPT/HCPCS: 85025; 86850; 86900; 86901; 90707

== ENCOUNTER 2024-12-18 14:08 | Emergency (ER) | payer OTHER ==
--- NOTE | 2024-12-18 14:51 | ED ---
Female Urogenital HPI - General Chief complaint: Vaginal Bleeding Stated complaint: vaginal bleeding Time Seen by Provider: 12/18/24 14:51 Source: patient, RN notes reviewed, old records reviewed Mode of arrival: ambulatory Limitations: no limitations - History of Present Illness Initial comments: 24-year-old female presented to the ER for evaluation of vaginal bleeding. Patient states she had an uncomplicated vaginal delivery on 10-29-2024. She reports she had normal bleeding which then subsided. She states on Monday night/Monday morning she started her menstrual cycle and states it was "full-blown". She states she has been bleeding through a super tampon along with a pad approximately every 20 minutes for the past 3 days. She reports mild suprapubic abdominal cramping as well. Patient states she went to go to work today and was feeling dizzy and nauseous. She contacted Dr. Chatterjee, her [employer] TESTER, who advised her to go to the emergency department if symptoms do not improve after ibuprofen and consuming water. Patient denies a history of requiring blood transfusions, history of endometriosis, uterine fibroids or PCOS. She is not on any blood thinners. Patient denies any fevers, chills, nausea, vomiting, chest pain, shortness of breath, urinary complaints, constipation/diarrhea or peripheral edema. - Related Data Home Medications Medication Instructions Recorded Confirmed Vit No.179/Iron/Folic 1 tab PO ONCE 09/18/24 10/29/24 [ Tablet] Allergies Allergy/AdvReac Type Severity Reaction Status Date / Time Latex, Natural Rubber AdvReac Itching Verified 12/18/24 14:29 Review of Systems ROS Statement: Those systems with pertinent positive or pertinent negative responses have been documented in the HPI. ROS Other: All systems not noted in ROS Statement are negative. Past Medical History Past Medical History: Asthma Additional Past Medical History / Comment(s): IBS, EXERCISE INDUCED ASTHMA, NO INHALER USE, herniated disc x 2 History of Any Multi-Drug Resistant Organisms: None Reported Past Surgical History: Orthopedic Surgery Additional Past Surgical History / Comment(s): Right wrist surgery. PAIN CLINIC PROCEDURES Past Anesthesia/Blood Transfusion Reactions: No Reported Reaction Additional Past Anesthesia/Blood Transfusion Reaction / Comment(s): HAS NEVER HAD GENERAL ANESTHESIA. Past Psychological History: Anxiety, Depression Smoking Status: Never smoker Past Alcohol Use History: None Reported Past Drug Use History: Marijuana - Past Family History Father History Unknown: Yes Family Medical History: Diabetes Mellitus General Exam Limitations: no limitations Course Vital Signs 12/18/24 14:23 Temperature 97.9 F Pulse Rate 75 Respiratory 18 Rate Blood Pressure 133/87 O2 Sat by Pulse 100 Oximetry Medical Decision Making - Lab Data Result diagrams: 12/18/24 15:09 12/18/24 15:09 Lab Results 12/18/24 12/18/24 12/18/24 Range/Units 15:09 15:09 15:22 WBC 5.0 (3.8-10.6) k/uL RBC 4.38 (3.80-5.40) m/uL Hgb 12.2 (11.4-16.0) gm/dL Hct 38.2 (34.0-46.0) % MCV 87.3 (80.0-100.0) fL MCH 27.9 (25.0-35.0) pg MCHC 31.9 (31.0-37.0) g/dL RDW 14.1 (11.5-15.5) % Plt Count 165 (150-450) k/uL MPV 9.1 Neutrophils % 52 % Lymphocytes % 39 % Monocytes % 4 % Eosinophils % 1 % Basophils % 0 % Neutrophils # 2.6 (1.3-7.7) k/uL Lymphocytes # 1.9 (1.0-4.8) k/uL Monocytes # 0.2 (0-1.0) k/uL Eosinophils # 0.1 (0-0.7) k/uL Basophils # 0.0 (0-0.2) k/uL Sodium 140 (137-145) mmol/L Potassium 4.1 (3.5-5.1) mmol/L Chloride 109 H (98-107) mmol/L Carbon Dioxide 22 (22-30) mmol/L Anion Gap 9 mmol/L BUN 16 (7-17) mg/dL Creatinine 0.60 (0.52-1.04) mg/dL Est GFR (CKD-EPI)AfAm >90 (>60 ml/min/1.73 sqM) Est GFR (CKD-EPI)NonAf >90 (>60 ml/min/1.73 sqM) Glucose 85 (74-99) mg/dL Calcium 9.3 (8.4-10.2) mg/dL Total Bilirubin 0.7 (0.2-1.3) mg/dL AST 37 H (14-36) U/L ALT 49 H (4-34) U/L Alkaline Phosphatase 114 (38-126) U/L Total Protein 7.3 (6.3-8.2) g/dL Albumin 4.2 (3.5-5.0) g/dL HCG, Quant <2.4 mIU/mL Urine Color Yellow Urine Appearance Clear (Clear) Urine pH 5.5 (5.0-8.0) Ur Specific [place] 1.034 (1.001-1.035) Urine Protein Negative (Negative) Urine Glucose (UA) Negative (Negative) Urine Ketones Negative (Negative) Urine Blood Large H (Negative) Urine Nitrite Negative (Negative) Urine Bilirubin Negative (Negative) Urine Urobilinogen <2.0 (<2.0) mg/dL Ur Leukocyte Esterase Negative (Negative) Urine RBC 169 H (0-5) /hpf Urine WBC 3 (0-5) /hpf Ur Squamous Epith Cells 1 (0-4) /hpf Urine Mucus Rare H (None) /hpf Disposition Clinical Impression: Vaginal bleeding Disposition: HOME SELF-CARE Condition: Stable Additional Instructions: Follow-up with [facility] [facility]. Return to the ER for any new or worsening symptoms. Is patient prescribed a controlled substance at d/c from ED?: No Referrals: Biacna Hinojosa MD [Primary Care Provider] - 1-2 days Hiwot Chatterjee DO [Doctor of Osteopathic Medicine] - 1-2 days Time of Disposition: 16:24
[2024-12-18 15:22] LABS: Basophils % (A) 0 %; Eosinophils # (A) 0.1 k/uL (0-0.7); Eosinophils % (A) 1 %; HCT 38.2 % (34.0-46.0); HGB 12.2 gm/dL (11.4-16.0); Lymphocytes # (A) 1.9 k/uL (1.0-4.8); Lymphocytes % (A) 39 %; MCH 27.9 pg (25.0-35.0); MCHC 31.9 g/dL (31.0-37.0); MCV 87.3 fL (80.0-100.0); Mean Platelet Volume 9.1; Monocytes # (A) 0.2 k/uL (0-1.0); Monocytes % (A) 4 %; Neutrophils # (A) 2.6 k/uL (1.3-7.7); Neutrophils % (A) 52 %; Platelet Count 165 k/uL (150-450); RBC 4.38 m/uL (3.80-5.40); RDW 14.1 % (11.5-15.5)
[2024-12-18] MEDS: SODIUM CHLORIDE 0.9% 1,000 ML IV ONE (15:29)
[2024-12-18 15:34] LABS: ALT 49 U/L (4-34); AST 37 U/L (14-36); African American GFR (CKD) >90 (>60 ml/min/1.73 sqM); Albumin 4.2 g/dL (3.5-5.0); Alkaline Phosphatase 114 U/L (38-126); Anion Gap 9 mmol/L; Blood Urea Nitrogen 16 mg/dL (7-17); Calcium 9.3 mg/dL (8.4-10.2); Carbon Dioxide 22 mmol/L (22-30); Chloride 109 mmol/L (98-107); Glucose 85 mg/dL (74-99); Non-African American GFR(CKD) >90 (>60 ml/min/1.73 sqM); Potassium 4.1 mmol/L (3.5-5.1); Sodium 140 mmol/L (137-145); Total Bilirubin 0.7 mg/dL (0.2-1.3); Total Protein 7.3 g/dL (6.3-8.2)
[2024-12-18 15:37] LABS: Appearance,Urine Clear (Clear); Bilirubin,Urine Negative (Negative); Blood,Urine Large (Negative); Color,Urine Yellow; Glucose,Urine (UA) Negative (Negative); Ketones,Urine Negative (Negative); Leukocyte Esterase,Urine Negative (Negative); Mucus,Urine Rare /hpf; Nitrite,Urine Negative (Negative); PH, Urine 5.5 (5.0-8.0); Protein,Urine Negative (Negative); RBC,Urine 169 /hpf (0-5); Specific Gravity,Urine 1.034 (1.001-1.035); Squamous Epithelial Cell,Urine 1 /hpf (0-4); Urobilinogen,Urine <2.0 mg/dL (<2.0); WBC,Urine 3 /hpf (0-5)
[2024-12-18 15:51] LABS: HCG,Quantitative Serum <2.4 mIU/mL
--- NOTE | 2024-12-18 16:14 | US ---
EXAMINATION TYPE: US transvaginal DATE OF EXAM: 12/18/2024 COMPARISON: NONE CLINICAL INDICATION: Female, 24 years old with history of vag bleeding- 2 months post ; TECHNIQUE: Transvaginal (TV). Transabdominal grayscale sonographic images of the pelvis were acquired. Transvaginal sonographic im ages were medically necessary to better assess the following anatomy: Doppler imaging: Color Doppler Images were obtained. Spectral doppler images were obtained. FINDINGS: EXAM MEASUREMENTS: Uterus: 8.3x4.6x6.6 cm Endometrial Stripe: 1.0 cm Right Ovary: 2.9x1.1x1.6 cm Left Ovary: 2.4x1.6x1.0 cm 1. Uterus: Retroverted wnl 2. Endometrium: wnl 3. Right Ovary: Complex area seen within rt ovary:0.9x1.1x1.0cm 4. Left Ovary: wnl Spectral, color and waveform doppler imaging shows good arterial and venous flow within the ovaries ; there is no evidence for ovarian torsion. 5. Bilateral Adnexa: wnl 6. Posterior cul-de-sac: wnl IMPRESSION: Small complex cyst right ovary may reflect hemorrhagic cysts. This could be confirmed wit h follow-up study in 6 weeks. O-RADS 2021 [email or web address] [facility], , 12/18/2024 4:11 PM
[2024-12-18 16:36] VITALS: BP 129/82; PULSE 67; RESP 16; TEMP 98
== END 2024-12-18 16:37 | disposition home or self-care (01) ==
LOC: EC 14:08
DX: N93.9 Abnormal uterine and vaginal bleeding, unspecified (principal); Z91.040 Latex allergy status
CPT/HCPCS: 36415; 76830; 80053; 81001; 84702; 85025; 86850; 86900; 86901; 93975; 96360; 99284

== ENCOUNTER → 2025-01-13 | Outpatient (CLI) | payer OTHER ==
[2025-01-13 18:48] LABS: Basophils # (A) 0.01 X 10*3/uL (0.00-0.10); Basophils % (A) 0.1 %; Eosinophils # (A) 0.08 X 10*3/uL (0.04-0.35); HCT 40.3 % (37.2-46.3); HGB 13.1 g/dL (12.0-15.0); Lymphocytes # (A) 0.98 X 10*3/uL (0.90-5.00); Lymphocytes % (A) 12.6 %; MCH 28.2 pg (27.0-32.0); MCHC 32.5 g/dL (32.0-37.0); MCV 86.7 FL (80.0-97.0); Mean Platelet Volume 11.8 FL (9.5-12.2); Monocytes # (A) 0.41 X 10*3/uL (0.20-1.00); Monocytes % (A) 5.3 %; NRBC Per 100 WBC 0 X 10*3/uL (0.00-0.01); Neutrophils # (A) 6.28 X 10*3/uL (1.80-7.70); Neutrophils % (A) 80.9 %; Platelet Count 147 X 10*3/uL (140-440); RBC 4.65 X 10*6/uL (4.10-5.20); WBC 7.77 X 10*3/uL (4.50-10.00)
== END | disposition home or self-care (01) ==
LOC: LABPAT 12:38
PROVIDERS: ATTEND Obstetrics & Gynecology Obstetrics
DX: Z01.812 Encounter for preprocedural laboratory examination (principal)
CPT/HCPCS: 85025

== ENCOUNTER 2025-02-06 08:33 | Day surgery (SDC) | payer OTHER ==
[2025-02-03 12:41] VITALS: BMI 30.5
[~2025-02-06 08:33] MED LIST changes: +HYDROmorphone 0.5 MG/0.5 ML SYRINGE IVP PRN; -LACTATED RINGERS 1,000 ML IV SCH; +ceFAZolin 2 GM in DEXTROSE 5% IN WATER 50 ML IVPB PRN
[2025-02-06] MEDS: IV FLUID CONTINUATION 1,000 ML IV ONE (08:49)
[2025-02-06] MEDS: LACTATED RINGERS 1,000 ML IV SCH (09:00)
[2025-02-06] MEDS: DEXAMETHASONE SOD PHOSPHATE 4 MG/ML 1 ML VIAL IV ONE (09:01)
[2025-02-06] MEDS: ONDANSETRON 4 MG/2 ML VIAL IVP ONE (09:01)
[2025-02-06] MEDS ORDERED: MIDAZOLAM 2 MG/2 ML VIAL ONE (09:45)
[2025-02-06] MEDS ORDERED: NEOSTIGMINE 1 MG/ML 10 ML VIAL ONE (09:45)
[2025-02-06] MEDS ORDERED: fentaNYL (PF) 50 MCG/ML 2 ML AMP ONE (09:45)
[2025-02-06] MEDS ORDERED: GLYCOPYRROLATE 0.2 MG/ML 2 ML VIAL ONE (09:45)
[2025-02-06] MEDS ORDERED: SUCCINYLCHOLINE CHLORIDE 200 MG/10 ML VIAL IV ONE (09:45)
[2025-02-06] MEDS ORDERED: LIDOCAINE 1% INJ 10MG/ML (20 ML MDV) ONE (09:45)
[2025-02-06] MEDS ORDERED: ROCURONIUM 10 MG/ML (5 ML VIAL) IV ONE (09:45)
[2025-02-06] MEDS ORDERED: KETOROLAC 15 MG/ML 1 ML VIAL ONE (09:45)
[2025-02-06] MEDS ORDERED: PROPOFOL 10 MG/ML 20 ML VIAL IV ONE (09:45)
[2025-02-06] MEDS: BUPIVACAINE (PF) 0.25% 30 ML VIAL SQ ONE ×2 (10:05)
[2025-02-06 10:58] VITALS: TEMP 98.1
[2025-02-06 12:23] VITALS: BP 99/52; PULSE 61; RESP 18
--- NOTE | 2025-02-20 10:15 | P.OP ---
Preoperative Diagnosis: Undesired fertility, family-planning complete Postoperative Diagnosis: Same Procedure(s) Performed: Laparoscopic tubal ligation with bilateral salpingectomy Anesthesia: EMANUEL Surgeon: Hiwot Chatterjee Estimated Blood Loss (ml): 10 Urine output (ml): 100 (Clear yellow) Pathology: none sent Condition: stable Disposition: PACU Indications for Procedure: Family-planning complete Operative Findings: Normal pelvic anatomy Description of Procedure: Patient was taken back to the operating suite where general anesthesia was obtained without difficulty by the anesthesia department. She was prepped and draped in the normal sterile fashion in the dorsal lithotomy position. Weighted speculum placed in the posterior vaginal vault antilipid the cervix was visualized and grasped with a single-tooth tenaculum. An acorn uterine manipulator is advanced into the cervix as a means to miniplate the uterus throughout the procedure. Right upper catheter was used to drain the bladder of clear yellow urine. Attention then turned to the patient's abdomen where in the umbilical fold a small skin incision is made, the Veress needle was introduced through the incision and toward the peritoneal cavity. Once the Veress needle was deemed to be in the appropriate position with a drop of CO2 pressure CO2 insufflation was allowed to occur. At this time trocar with the laparoscope in place was placed through the skin incision and toward the pneumoperitoneum the trocar was removed with the sheath remaining and the above-noted findings were visualized. Additional port sites are placed in the lateral abdomen approximately 10 cm lateral and 3 cm inferior to this midline port. These were placed under direct visualization. The right fallopian tube was elevated grasped with a ligature and transected through the mesosalpinx to the cornual region. This fallopian tube was then removed without difficulty. This was then repeated on the opposite side. Tubal sites were inspected after removal and hemostasis was appreciated. All instruments were removed from the patient's abdomen at this time. Skin incisions were closed with 4-0 Vicryl in a subcuticular fashion. Steri-Strips and sterile dressings were applied. Attention was then turned to the patient's vaginal vault where the rubber catheter was removed and draining clear yellow urine, the single-tooth tenaculum was taken off of the anterior lip of the cervix and on upon inspection hemostasis was appreciated. All counts were noted to be correct x 2. Patient tolerated procedure well and was taken the recovery awake in stable condition.
== END 2025-02-06 12:37 | disposition home or self-care (01) ==
LOC: OR 08:33
PROVIDERS: ATTEND Obstetrics & Gynecology Obstetrics
DX: Z30.2 Encounter for sterilization (principal)
CPT/HCPCS: 81025; 88302; 58661; J2250; J0330; J1100; J2710; J2405; J2003; J3010; J1885; J2704; J0665; J1596